=== PATIENT | male | born 1955 | race Caucasian/White ===

== ENCOUNTER → 2017-02-20 | Day surgery (SDC) | payer BC ==
[2017-02-02 11:51] VITALS: Ht 177.8 cm; Wt 111.4 kg
[~2017-02-20] VITALS: Ht 177.8 cm; Wt 111.4 kg
[~2017-02-20] MED LIST: HYZ/50125 PO; LEVO175T3 PO; MULT-1093 PO; PROPOFOL IV EMULSION 10 MG/ML 20 ML VIAL IV ONE; SODIUM CHLORIDE 0.9% 500ML 500 ML IV ONE
--- NOTE | 2017-02-20 09:49 | Endo History and Physical ---
History & Physical Date of Service: Feb 20, 2017. Chief Complaint: screening Referring Physician: Dr. Vazquez Benoit History of Present Illness 62 yo CM who presents for screening colonoscopy. Past Medical History Arthritis, Reflux, Hypertension, Thyroid Disease, Other Past Surgical History Hx Cardiac Surgery: No Hx Internal Defibrillator: No Hx Pacemaker: No Hx Abdominal Surgery: Yes (MIGUE, APPY, UMBILICAL HERNIA REPAIR ) Hx of Implantable Prosthesis: No Hx Post-Op Nausea and Vomiting: No Hx Cancer Surgery: No Hx Thoracic Surgery: No Hx Orthopedic: Yes (LEFT SHOULDER REPAIR, BILAT CTR, RIGHT KNEE ARTHROSCOPY) Hx Urinary Tract Surgery: Yes ([facility]) Family History None Social History Smoking Status: Never Smoker Hx Substance Use: No Hx Alcohol Use: No Allergies Coded Allergies: No Known Allergies (Verified , 02/02/17) Current Medications Reported Home Medications Medications Dose Route/Sig Max Daily Dose Days Date Category Centrum Silver 50+Men (Multiple Vitamins W/ Minerals) 1 Tab Tab 1 Tab PO QAM 02/02/17 Reported Hyzaar 12.5MG/50MG (HCTZ/Losartan Potassium) 1 Ea Tab 1 Tab PO QAM 02/02/17 Reported Levothyroxine Sodium 175 Mcg Tab 1 Tab PO QAM 90 02/02/17 Reported Vital Signs Weight (Kilograms): 111.36 Height (Feet): 5 Height (Inches): 10 Date Time Temp Pulse Resp B/P (MAP) Pulse Ox O2 Delivery O2 Flow Rate FiO2 02/20/17 09:02 36.9 72 20 119/68 (85) 95 Room Air Physical Exam General Appearance: WD/WN, no apparent distress Respiratory/Chest: Auscultation: breath sounds normal Cardiovascular: Heart Auscultation: RRR Abdomen: Bowel Sounds: normal Inspection & Palpation: soft, non-distended, no tenderness, guarding & rebound Assessment and Plan Assessment: 62 yo CM who presents for screening colonoscopy. Plan: Proceed with colonoscopy.
--- NOTE | 2017-02-20 10:17 | GI REPORT ---
Procedure Date: 02/20/2017 9:17 AM THIS REPORT HAS BEEN AMENDED Addendum Number: 1 Addendum Date: 02/20/2017 11:14:25 AM No specimens were collected on this exam, and therefore, no pathology is pending. Repeat colonoscopy in 10 years. Procedure: Colonoscopy Indications: Screening for colorectal malignant neoplasm Medicines: Monitored Anesthesia Care Complications: No immediate complications. Estimated Blood Loss: Estimated blood loss: none. Procedure: Pre-Anesthesia Assessment: - Prior to the procedure, a History and Physical was performed, and patient medications and allergies were reviewed. The patient's tolerance of previous anesthesia was also reviewed. The risks and benefits of the procedure and the sedation options and risks were discussed with the patient. All questions were answered, and informed consent was obtained. Prior Anticoagulants: The patient has taken no previous anticoagulant or antiplatelet agents. ASA Grade Assessment: II - A patient with mild systemic disease. After reviewing the risks and benefits, the patient was deemed in satisfactory condition to undergo the procedure. After I obtained informed consent, the scope was passed under direct vision. Throughout the procedure, the patient's blood pressure, pulse, and oxygen saturations were monitored continuously. The On-site loaner was introduced through the anus and advanced to the terminal ileum. The colonoscopy was performed without difficulty. The patient tolerated the procedure well. The quality of the bowel preparation was good. The terminal ileum, ileocecal valve, appendiceal orifice, and rectum were photographed. Findings: Non-bleeding internal hemorrhoids were found during retroflexion. The hemorrhoids were small. Impression: - Non-bleeding internal hemorrhoids. - No specimens collected. Recommendation: - Resume previous diet. - Continue present medications. - Repeat colonoscopy for surveillance based on pathology results. - Return to primary care physician as previously scheduled. Tawanda Selby, DO 02/20/2017 10:16:38 AM This report has been signed electronically. Note Initiated On: 02/20/2017 9:17 AM I attest to the content of the Intraoperative Record and orders documented therein, exceptions below Tawanda Tyler Selby, DO 02/20/2017 11:14:55 AM This report has been signed electronically.
--- NOTE | 2017-02-20 10:18 | Discharge Instructions ---
Endoscopy Patient Instructions Date / Procedure(s) Performed Feb 20, 2017. Colonoscopy Allergy Information Coded Allergies: No Known Allergies (Verified , 02/02/17) Discharge Date / Findings Feb 20, 2017. Internal hemorrhoids Medication Instructions OK to resume all medications today as prescribed Reported Home Medications Medications Dose Route/Sig Max Daily Dose Days Date Category Centrum Silver 50+Men (Multiple Vitamins W/ Minerals) 1 Tab Tab 1 Tab PO QAM 02/02/17 Reported Hyzaar 12.5MG/50MG (HCTZ/Losartan Potassium) 1 Ea Tab 1 Tab PO QAM 02/02/17 Reported Levothyroxine Sodium 175 Mcg Tab 1 Tab PO QAM 90 02/02/17 Reported Provider Instructions Activity Restrictions - No exercising or heavy lifting for 24 hours. - Do not drink alcohol the day of the procedure. - Do not drive a car or operate machinery until the day after the procedure. - Do not make any important decisions or sign important papers in 24 hours after the procedure. Following Day: - Return to full activity which may include returning to work/school. Diet Start your diet with liquids and light foods (jello, soup, juice, toast). Then eat your usual diet if not nauseated. Treatment For Common After Affects For mild abdominal pain, bloating, or excessive gas: - Rest - Eat lightly - Lie on right side Follow-Up Information Follow-up with Dr. Vazquez Benoit as scheduled Anesthesia Information What You Should Know You have had a procedure that required some medicine to reduce anxiety and discomfort. This treatment is called moderate sedation. After receiving the treatment, you may be sleepy, but you will be able to breathe on your own. The effects of the treatment may last for several hours. Follow these instructions along with Activity/Diet recommendations noted above: * Do NOT do anything where dizziness or clumsiness would be dangerous. * Rest quietly at home today, then you can be up and about tomorrow. * Have a responsible person stay with you the rest of today. * You may have had an I.V. today. If so, you may take the dressing off later today. Recommendations Call your doctor if: * Trouble breathing * Continuous vomiting for more than 24 hours * Temperature above 101 degrees * Severe abdominal pain or bloating * Pain not relieved by pain medicine ordered * There is increased drainage or redness from any incision * A large amount of rectal bleeding greater than 2-3 tablespoons. (If you had a polyp/s removed or have hemorrhoids, a small amount of blood - from the rectum is to be expected.) * You have any unanswered questions or concerns. IN THE EVENT OF A SERIOUS EMERGENCY, GO TO THE NEAREST EMERGENCY ROOM Your discharge instructions were prepared by provider Tawanda Selyb. Patient Instructions Signature Page Philip Vail Patient (or Guardian) Signature/Date: I have read and understand the instructions given to me by my caregivers. Caregiver/RN/Doctor Signature/Date: The above-named patient and/or guardian has received patient instructions on this date. + Original Patient Signature Page (only) stays with chart. Please make copy for patient.
--- NOTE | 2017-02-20 10:43 | Anesthesiology Progress Note ---
Anesthesia Post Op Note Date & Time Feb 20, 2017 at 10:43 Vital Signs Pain Intensity: 0 Vital Signs Past 12 Hours Date Time Temp Pulse Resp B/P (MAP) Pulse Ox O2 Delivery O2 Flow Rate FiO2 02/20/17 10:33 66 16 117/72 (87) 95 Room Air 02/20/17 10:18 36.6 64 16 109/62 (78) 95 Room Air 02/20/17 09:02 36.9 72 20 119/68 (85) 95 Room Air Notes Mental Status: alert / awake / arousable, participated in evaluation Pt Amnestic to Procedure: Yes Nausea / Vomiting: adequately controlled Pain: adequately controlled Airway Patency, RR, SpO2: stable & adequate BP & HR: stable & adequate Hydration State: stable & adequate Anesthetic Complications: no major complications apparent
[2017-02-20 10:48] VITALS: BP 130/77; PULSE 63; O2SAT 97
== END | disposition home or self-care (01) ==
LOC: C.GI 08:42
PROVIDERS: ATTEND Internal Medicine
DX: Z12.11 Encounter for screening for malignant neoplasm of colon (principal); K64.8 Other hemorrhoids; I10 Essential (primary) hypertension; K21.9 Gastro-esophageal reflux disease without esophagitis; E07.9 Disorder of thyroid, unspecified; M19.90 Unspecified osteoarthritis, unspecified site; Z79.899 Other long term (current) drug therapy

== ENCOUNTER → 2017-05-07 | Outpatient (CLI) | payer BC ==
[~2017-05-07] MED LIST changes: -PROPOFOL IV EMULSION 10 MG/ML 20 ML VIAL IV ONE; -SODIUM CHLORIDE 0.9% 500ML 500 ML IV ONE
--- NOTE | 2017-05-07 15:05 | DIAGNOSTIC IMAGING REPORT ---
CHEST 2 VIEWS ROUTINE CLINICAL HISTORY: R07.81 Chest pain, [id number] COMPARISON STUDY: 01/07/2015 FINDINGS: The cardiac and mediastinal contours remain stable. There is a descending aortic tortuosity/ectasia. There is no focal pulmonary consolidation. There is no failure. There are no pleural effusions. There is bridging anterior calcification of the anterior longitudinal ligament.[ IMPRESSION: No active disease in the chest. Electronically signed by: Teto Dowling M.D. 05/07/2017 3:03 PM Dictated Date/Time: 05/07/2017 3:03 PM
== END | disposition home or self-care (01) ==
LOC: C.RADBC 14:52
PROVIDERS: ATTEND Physician Assistant Medical
DX: R07.81 Pleurodynia (principal)

== ENCOUNTER → 2017-05-14 | Outpatient (CLI) | payer BC ==
[2017-05-14 16:45] LABS: BASO % 0.3 %; BASO ABS # 0.03 K/uL (0-0.2); COMPLETE YES; EOS % 2.5 %; HEMATOCRIT 42.1 % (42-52); IG% 0.4 %; LYMPH % 13.2 %; LYMPH ABS # 1.42 K/uL (1.2-3.4); MEAN CELL VOLUME 85.6 fL (80-100); MEAN CORPUSCULAR HEMOGLOBIN 30.3 pg (25-34); MEAN CORPUSCULAR HGB CONC 35.4 g/dl (32-36); MEAN PLATELET VOLUME 8.8 fL (7.4-10.4); MONO % 6.5 %; NEUT % 77.1 %; PLATELET COUNT 143 K/uL (130-400); RED BLOOD COUNT 4.92 M/uL (4.7-6.1); WHITE BLOOD COUNT 10.74 K/uL (4.8-10.8)
[2017-05-14 17:06] LABS: BLOOD UREA NITROGEN 22 mg/dl (7-18); BUN/CREATININE RATIO 28.9 (10-20); CALCIUM 8.9 mg/dl (8.5-10.1); CARBON DIOXIDE 27 mmol/L (21-32); CHLORIDE 103 mmol/L (98-107); CREATININE 0.77 mg/dl (0.60-1.40); GLUCOSE 102 mg/dl (70-99); POTASSIUM 3.7 mmol/L (3.5-5.1); SODIUM 136 mmol/L (136-145)
[2017-05-14 17:09] LABS: ALKALINE PHOSPHATASE 146 U/L (45-117); ALT/SGPT 34 U/L (12-78); AST/SGOT 24 U/L (15-37)
[2017-05-14 19:17] LABS: LYME DISEASE AB IGG NEG (NEG); LYME DISEASE AB IGM NEG (NEG)
[2017-05-15 07:21] LABS: ESTIMATED AVERAGE GLUCOSE 91 mg/dl; HA1C FLAG Normal (Normal)
== END | disposition home or self-care (01) ==
LOC: C.LAB 15:56
PROVIDERS: ATTEND Physician Assistant Medical
DX: I10 Essential (primary) hypertension (principal); E03.9 Hypothyroidism, unspecified; R73.9 Hyperglycemia, unspecified; R07.81 Pleurodynia; W57.XXXA Bitten or stung by nonvenomous insect and other nonvenomous arthropods, initial encounter

== ENCOUNTER 2023-12-04 11:40 | Observation (INO) ==
--- NOTE | 2023-11-15 11:26 | PAT Medication Instructions ---
Medication Instructions Date of Service November 15, 2023 Home Medications Medication Instructions Recorded hydrochlorothiazide 12.5 mg capsule 12.5 mg PO QAM #90 caps 09/10/23 losartan 50 mg tablet 50 mg PO QAM #90 tabs 09/18/23 pantoprazole 40 mg tablet,delayed 40 mg PO QAM #90 tabs 11/05/23 release (Protonix) multivitamin 1 tab PO QAM ibuprofen 200 mg tablet (Advil) 200 mg PO Q6H PRN omega-3 fatty acids 1,000 mg capsule 1,000 mg PO QAM levothyroxine 175 mcg tablet 175 mcg PO QAM hydrochlorothiazide 12.5 mg capsule 12.5 mg PO QAM losartan 50 mg tablet 50 mg PO QAM pantoprazole 40 mg tablet,delayed release (Protonix) 40 mg PO QAM levothyroxine 50 mcg tablet 50 mcg PO QAM ASK your surgeon for instructions ibuprofen 200 mg tablet (Advil) 200 mg PO Q6H PRN STOP taking 2 weeks before surgery (or as soon as possible if surgery is within 2 weeks) omega-3 fatty acids 1,000 mg capsule 1,000 mg PO QAM DO NOT take the morning of surgery multivitamin 1 tab PO QAM hydrochlorothiazide 12.5 mg capsule 12.5 mg PO QAM losartan 50 mg tablet 50 mg PO QAM Take morning of surgery With a small sip of water, OTHERWISE NOTHING TO EAT OR DRINK AFTER MIDNIGHT: levothyroxine 175 mcg tablet 175 mcg PO QAM pantoprazole 40 mg tablet,delayed release (Protonix) 40 mg PO QAM levothyroxine 50 mcg tablet 50 mcg PO QAM Other Notes If you have any questions please call us at [phone] or [phone] or [phone] or [phone]
--- NOTE | 2023-11-20 09:26 | Anesthesiology Consultation ---
Date of Service November 20, 2023 Assessment & Plan (1) Encounter for pre-operative examination: - Infectious disease screening: Per assessment on 11/15/23: No known recent infectious disease contacts or current infectious disease symptoms. - Outpatient joint assessment: Pt currently scheduled for inpatient pathway. If surgeon requests review for outpatient joint pathway, patient is not recommended candidate for outpatient joint program from anesthesia standpoint based on available information. - S/P EGD (09/20/23): [facility] at [facility] Chart Review Chart Review: Acceptable Risk for Surgery and Patient seen in Pre Admission Testing Teaching & Discussion Pre-Anesthesia Teaching/Discussion Notes: Instructed NPO after midnight before surgery,except medications with 15 cc of water. Medication instructions provided according to the PAT guidelines. History Surgery Operation Date: 12/04/23 08:50 Proposed Procedures p Right Total Knee Arthroplasty - Rambo Mccrary MD Height/Weight Height: 5 ft 10 in Weight: 123.9 kg Allergies Allergy/AdvReac Type Severity Reaction Status Date / Time No Known Allergies Allergy Unknown Verified 11/15/23 10:09 Medications Home Medications Medication Instructions Recorded Confirmed Last Taken multivitamin 1 tab PO QAM 05/17/18 11/15/23 09/11/23 ibuprofen 200 mg tablet (Advil) 200 mg PO Q6H PRN Pain 06/14/21 11/15/23 09/19/23 omega-3 fatty acids 1,000 mg 1,000 mg PO QAM 12/28/22 11/15/23 09/11/23 capsule levothyroxine 175 mcg tablet 175 mcg PO QAM 09/06/23 11/15/23 09/20/23 04:30 hydrochlorothiazide 12.5 mg capsule 12.5 mg PO QAM #90 caps 09/10/23 11/15/23 09/19/23 losartan 50 mg tablet 50 mg PO QAM #90 tabs 09/18/23 11/15/23 09/20/23 04:30 pantoprazole 40 mg tablet,delayed 40 mg PO QAM #90 tabs 11/05/23 11/15/23 Unknown release (Protonix) levothyroxine 50 mcg tablet 50 mcg PO QAM 11/15/23 11/15/23 Unknown Wheeled Walker #1 ea 11/20/23 Unknown Past Medical History Medical History BPH (benign prostatic hyperplasia) no current issues Cervical spinal stenosis GERD (gastroesophageal reflux disease) History of kidney stones Hyperlipidemia Hypertension Hypothyroidism Lumbar spinal stenosis Obesity Obstructive sleep apnea Unable to Tolerate CPAP Osteoarthritis Renal cyst bilateral - monitoring Exercise / Class Metabolic Activity II 4-5 Yardwork/Stairs/Walk up hill (one FS: No CP, no SOB) Past Family History Family History Mother Cancer of kidney, Onset Age: 92 Father Diabetes . age 57 Coronary heart disease age 57 Myocardial infarction Uncle Lung cancer Other No family history of adverse response to anesthesia Denies family history of Ovarian cancer Prostate cancer Breast cancer Colorectal cancer Stroke Past Surgical History Surgical History H/O colonoscopy H/O removal of cyst forehead (local anesthesia) History of appendectomy History of cholecystectomy History of umbilical hernia repair Hx of cystoscopy Hx of esophagogastroduodenoscopy [facility] (09/20/23) Hx of lithotripsy 2014 S/P arthroscopy of shoulder left rotator cuff repair S/p bilateral carpal tunnel release S/P epidural steroid injection S/P right knee arthroscopy S/P T&A (status post tonsillectomy and adenoidectomy) Past Anesthesia History No Hx of Anesthesia Complications and No Family Hx of Anesthesia Complications History of PONV No Hx of PONV and No Hx of Motion Sickness Social History Smoking Status: Never smoker Do You Dip or Chew Tobacco: No Hx Alcohol Use: No Alcohol type: beer Hx Substance Use: No substance use type: does not use Review of Systems Patient denies chest pain, shortness of breath, dyspnea on exertion, fever, chills, cough, wheezing, palpitations. Physical Exam Vital Signs BP 116/70 P 59 TEMP 98.6 SP02 95%RA RESP 18 Physical Decreased cervical extension range of motion. Full TMJ range of motion. TMD 3.5 finger breaths Mallampati Score 2 Dentition: missing molar, + crown (molar) Lungs: clear throughout to auscultation Cardiac: regular rate and rhythm, no murmurs noted Spine: normal Carotid arteries: negative bruit Extremities: no LE edema Lab Results Anesthesia Preop Results Results Anesthesia Widget: WBC 12.08 K/ul (4.8-10.8) H 11/20/23 Hgb 13.9 g/dl (14.0-18.0) L 11/20/23 Hct 42.0 % (42.0-52.0) 11/20/23 Plt 204 K/uL (130-400) 11/20/23 Na 137 mmol/L (136-145) 11/20/23 K 3.5 mmol/L (3.5-5.1) 11/20/23 Cl 104 mmol/L (98-107) 11/20/23 CO2 26 mmol/L (21-32) 11/20/23 BUN 18 mg/dl (6-23) 11/20/23 Creat 0.91 mg/dl (0.6-1.4) 11/20/23 Glucose Level 107 mg/dl (70-99(Fasting)) H 11/20/23 PT 10.1 Seconds (9.0-12.0) 11/20/23 PTT 29 Seconds (21-31) 11/20/23 INR 0.9 (0.9-1.1) 11/20/23 Blood Type O Positive 11/20/23 Antibody Screen NEGATIVE 11/20/23 Testing Laboratory Results Surgeon's office made aware of elevated WBC* Electrocardiogram Date: 07/04/23 SR with first degree AVB at 69bpm. Chest X-Ray Date: 07/04/23 FINDINGS: Lung volumes are normal. Lungs are clear. There is no pneumothorax or pleural effusion. Cardiac size is at the upper limits of normal. Mediastinal contours are normal. There is no evidence for pulmonary edema. IMPRESSION: No acute cardiopulmonary findings. Stress Test Date: 07/30/23 Type: DSE DSE/stress ECG for myocardial ischemia 90% MPHR. Baseline echo with normal LV function. LVEF 50-55%. Mild concentric LVH. No significant valvular disease.
--- NOTE | 2023-11-23 07:50 | History & Physical Report ---
Date of Service November 23, 2023 Assessment & Plan (1) Degenerative arthritis of knee, bilateral: 68-year-old gentleman with advanced bilateral knee arthritis. The right seems knee is bothering him more than the left. He is ready to have surgical treatment. He was hoping to do both knees at the same time. Based on his age and medical situation I do not think that this is in the best of his interest and we should stick to doing 1 knee at a time. Plan: Corrie taken the operating do right total knee replacement for the risks Mente this procedure explained and he understands and desires to proceed. Informed consent was obtained. Will plan on using aspirin, teds, SCDs for DVT prophylaxis. He does have a fishing trip in early and will do after that. He is planning to be discharged to home using [facility] and his 's assistance. History of Present Illness Chief Complaint: . Bilateral knee pain right side greater than left. Primary Care Provider: Jet Muhammad DO . Patient is 68-year-old gentleman referred by Dr. Gore as well as a Hussein for evaluation and definitive treatment of his knees. He is got a long history of bilateral knee pain discomfort that is gradually gotten worse over time. The right knee bothers him more than the left. He does have a history of a right knee arthroscopy done in the past. Pains become more disabling. He has been putting this off for quite some time. He describes global pain. The more he is up and on his legs and where it hurts. They get stiff. Allergies Allergy/AdvReac Type Severity Reaction Status Date / Time No Known Allergies Allergy Unknown Verified 11/15/23 10:09 Home Medications Medication Instructions Recorded Confirmed Type multivitamin 1 tab PO QAM 05/17/18 11/15/23 History ibuprofen 200 mg tablet (Advil) 200 mg PO Q6H PRN Pain 06/14/21 11/15/23 History omega-3 fatty acids 1,000 mg 1,000 mg PO QAM 12/28/22 11/15/23 History capsule levothyroxine 175 mcg tablet 175 mcg PO QAM 09/06/23 11/15/23 History hydrochlorothiazide 12.5 mg capsule 12.5 mg PO QAM #90 caps 09/10/23 11/15/23 Rx losartan 50 mg tablet 50 mg PO QAM #90 tabs 09/18/23 11/15/23 Rx pantoprazole 40 mg tablet,delayed 40 mg PO QAM #90 tabs 11/05/23 11/15/23 Rx release (Protonix) levothyroxine 50 mcg tablet 50 mcg PO QAM 11/15/23 11/15/23 History Wheeled Walker #1 ea 11/20/23 Rx Past Med/Surg History Problem List (Updated 11/23/23 @ 07:48 by Rambo Mccrary MD) Degenerative arthritis of knee, bilateral Encounter for pre-operative examination Impingement of left shoulder Cervical radiculopathy Asbestos exposure Lumbar radiculopathy Elevated PSA Medical History Obesity Hyperlipidemia Hypertension Hypothyroidism Osteoarthritis GERD (gastroesophageal reflux disease) BPH (benign prostatic hyperplasia) no current issues Cervical spinal stenosis Lumbar spinal stenosis History of kidney stones Renal cyst bilateral - monitoring Obstructive sleep apnea Unable to Tolerate CPAP Surgical History S/P epidural steroid injection H/O removal of cyst forehead (local anesthesia) Hx of esophagogastroduodenoscopy [facility] (09/20/23) Hx of cystoscopy H/O colonoscopy S/P T&A (status post tonsillectomy and adenoidectomy) Hx of lithotripsy 2014 S/P right knee arthroscopy S/p bilateral carpal tunnel release S/P arthroscopy of shoulder left rotator cuff repair History of umbilical hernia repair History of appendectomy History of cholecystectomy Family History Mother Cancer of kidney, Onset Age: 92 Father Diabetes . 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 Physical Exam Physical examination reveals a pleasant fairly large middle-age male. Looks in reasonably good health. Examination of both knees reveals patient walks with a varus alignment to his knees. Walks a little bit waddling gait. Examination of the right knee reveals varus alignment. He is tender with medial joint lines. Small knee effusion. Range of motion 5-1 20. No instability. No particular pain with hip motion. Examination left knee reveals similar varus alignment. He is tender with medial joint line. Range of motion 5-1 20. No instability. Constitutional WD/WN, vitals as above Neck trachea midline, no thyromegaly Respiratory normal respiratory effort, lungs clear to auscultation Cardiovascular RRR, no murmur, no edema Gastrointestinal (Abdomen) normal bowel sounds, soft, nontender, no hepatosplenomegaly Results & Data Results & Data Laboratory Results . Diagnostic Findings . X-rays of both knees reveal advanced medial compartment arthritis. He is got complete loss of the medial joint space. Is kilobit chondrocalcinosis. Both knees are pretty equal in severity. PG Care Time/CCT Total # of Minutes Spent Total Time Spent with Patient: Total time spent is greater than 50% in coordination of care (as documented) at patient's floor/unit and/or counseling patient: Coding Level of Care Code None Diagnoses Degenerative arthritis of knee, bilateral M17.0
[~2023-12-04 11:40] MED LIST changes: +BUPIVACAINE 0.5 % 5 MG/1 ML PF 10ML VIAL ONE; +EPINEPHrine INJ 1 MG/ML AMP ONE; -HYZ/50125 PO; -LEVO175T3 PO; -MULT-1093 PO; +ROPIVACAINE 0.5% 5 MG/ML 30 ML VIAL ONE
[2023-12-04] MEDS: CeleBREX 200 MG CAP PO SCH (12:26)
[2023-12-04] MEDS: ACETAMINOPHEN 500 MG TAB PO SCH ×2 (12:26→20:01)
[2023-12-04] MEDS: dexAMETHasone**PF** 10 MG/ML VIAL IV SCH (12:27)
[2023-12-04] MEDS: LR 60ML/HR IV SCH (12:27)
[2023-12-04] MEDS: METOCLOPRAMIDE HCL 10 MG TABLET PO SCH (12:27)
[2023-12-04] MEDS: FAMOTIDINE 20 MG TAB PO SCH (12:27)
[2023-12-04] MEDS: Scopolamine 1 MG TDSY TD SCH (12:28)
[2023-12-04] MEDS: LR 500ML BOLUS, THEN 15ML/HR IV SCH (12:28)
--- NOTE | 2023-12-04 13:02 | History & Physical Bridge Note ---
Date of Service December 04, 2023 History & Physical Bridge Note I have examined the patient, reviewed the History & Physical and in the interval since the performance of the History & Physical I have noted the following changes of clinical significance: no changes noted
[2023-12-04] MEDS ORDERED: ePHEDrine sulfate 50 MG/ML AMP IV PRN (13:51)
[2023-12-04] MEDS ORDERED: ATROPINE SULFATE 0.1 MG/ML 10ML SYR IV PRN (13:51)
[2023-12-04] MEDS ORDERED: PROPOFOL IV EMULSION 10 MG/ML 20 ML VIAL IV ONE ×5 (14:42→15:44)
[2023-12-04] MEDS ORDERED: MIDAZOLAM HCL 1 MG/ML 2ML VIAL ONE (14:42)
[2023-12-04] MEDS ORDERED: ONDANSETRON INJ 2 MG/ML 2 ML VIAL ONE (14:42)
[2023-12-04] MEDS ORDERED: LIDOCAINE 2% 2 ML VIAL/AMP(20MG/ML) INFIL ONE (14:42)
[2023-12-04] MEDS ORDERED: DEXAMETHASONE SOD INJ 4 MG/ML VIAL ONE (14:42)
[2023-12-04] MEDS ORDERED: fentaNYL citrate PF 100 MCG/2 ML VIAL ONE (14:43)
[2023-12-04] MEDS: ceFAZolin 3000MG 3,000 MG/72.5 ML BAG IV SCH (15:02)
[2023-12-04] MEDS: ROPIV 0.5% 246mg, Ketorolac 30mg, EPINEPHrine 0.5mg in NSS INFIL SCH (15:45)
[2023-12-04] MEDS: ORTHO JOINT ANESTHETIC ONE (15:45)
[2023-12-04] MEDS: TRANEXAMIC ACID 1,000 MG **IV Pre-op IV SCH (16:16)
--- NOTE | 2023-12-04 16:42 | Operative Report ---
PG Post Operative Report Pre & Post Diagnosis Operation Date: 12/04/23 13:50 Pre-Op Diagnosis: Right Knee Degenerative Joint Disease Post-Op Diagnosis: Right Knee Degenerative Joint Disease I identified the patient and participated in the time-out.: Yes Procedure Operation Date: 12/04/23 13:50 Actual Procedures p Right Total Knee Arthroplasty, Cemented(Right) - Rambo Mccrary MD Surgeon Rambo Mccrary MD Trolley Coach Driver Hussein Tomlin PA-C Estimated Blood Loss 100 Findings Consistent with Post-Op Diagnosis Operative findings show advanced right knee DJD. He had grade 4 [id number] disease primarily involving the medial and patellofemoral compartments. Moderate-sized joint effusion. Specimens Right knee sent for pathology. Anesthesia Type Spinal MAC Complications none Disposition Accompanied Patient To Recovery: No Indications Patient is a 68-year-old gentleman has a several year history of increasing right knee pain discomfort that is gradually gotten worse over time. Is been through extensive conservative treatment which became less successful. X-rays show advanced right knee DJD. He elected proceed with surgical treatment. Description of Procedure Operative implants consisted of: 1. Biomet Vanguard size 72.5 right posterior stabilized femoral component. 2. Biomet size 79 tibial tray. 3. 10 mm posterior stabilized polyethylene insert. 4. 34 x 8 and half all poly patella. The patient was taken to the operating, identified, placed on the operating table in the supine position. All contact areas were appropriately padded. IV antibiotics tried by anesthesia team. I a spinal anesthetic and adductor canal block had provided in the holding area. A right thigh turn was then placed. The right lower extremity was then prepped and draped in usual sterile fashion. The right leg was elevated and exsanguinated with use of an Esmarch and the tourniquet was placed at 300 mmHg. We did adjust this over time up to 350 to limit blood loss. An anterior approach to the right knee was then performed to longitudinal incision centered over the patella. Sharp dissection was carried through subcutaneous tissue down the extensor mechanism. A medial parapatellar arthrotomy incision was made. Some subperiosteal dissection was carried out medially. The fat pad was resected from Neath patella tendon. The lateral patellofemoral ligament was released. Patella subluxated laterally and the knee was flexed. The osteophyte taken off distal femur. The ACL PCL were then released from the distal femur and the tibia subluxated anteriorly. The external treatment line jig was then placed on the anterior face of the tibia and adjusted 14 mm medially. Proximal tibial cut was made remove about 2 to 3 mm of bone from the medial side. The tibia was then sized to a size 79. Attention drawn the femur. The distal femur Zaro the sharp drill. Intramedullary canal was suction. A right 6 degree valgus cutting guide was placed. Distal femoral cutting block was pinned in place. Distal femoral cut was made to take an additional 3 mm of bone off distal femur. The femur was then sized to a size 72.5. The AP cutting block was pinned parallel to the epicondylar axis which was 4 degrees of external rotation. The anterior cut, anterior chamfer, posterior cut, posterior chamfer cuts were made. The box cutting guide was placed with just slight lateral and the box cut was made. The knee was flexed. The remnants of the medial and lateral menisci were excised. The osteophytes were taken off the posterior aspect the femur. A trial femoral component was placed. The tibial tray was pinned Sheila external rotation and the drill and stem punch were used to create defect in proximal tibia for the tibial tray. The knee was then trialed and the 10 mm insert fit most appropriately. Attention drawn the patella. The patella was cleaned of all soft tissue. Patella thickness measured 23 mm in thickness was cut down to 14. Was sized to a size 34 patella. The locals were drilled for 34 patella. The lateral osteophytes removed. Patella button was placed. Knee was taken through range of motion patella tracked nicely with no thumbs test. Attention drawn to placing permanent components. All trial components were removed. Bone plug was placed in the distal femur limit blood loss. Double batch Palacos G cement was mixed. Biomet Vanguard size 72.5 right posterior stabilized femoral component, size 79 tibial tray, a 10 mm post stabilized polyethylene insert, and a 34 x 8 and half all poly patella then cemented in place. The knee was brought out into full extension till cement hardened. Final cement check was then performed. The pericapsular tissues were injected with total of 100 cc of Ortho mix. The patient did receive 1 g of tranexamic acid but the tourniquet was then let down for final tourniquet time of 49 minutes. Hemostasis assured use electrocautery. Extensor Meclomen closed with combination 1 PDS suture #1 Vicryl suture in a [id number] fashion. Extensor Meclomen checked found to be intact in the subcutaneous tissues then closed with 2 Dexon suture in a buried interrupted fashion skin was closed skin mane. Leg was then cleaned and dried and sterile dressed with Xeroform, 4.8 fours, sterile cast padding, Mario bandage were applied. Patient then transferred to the recovery room in stable condition. Patient tolerated procedure well and there were no complications. Hussein Tomlin, my physician assistant art director, was present for the entire procedure. His assistance was essential and required for appropriate patient positioning, prepping and draping, surgical exposure, performing the technical details of the operation, placement the implants, closure of the wound, and placement of the sterile bandage. I attest to the content of the Intraoperative Record and any orders documented therein. Any exceptions are noted below.
--- NOTE | 2023-12-04 17:09 | XRay Report ---
TWO VIEWS RIGHT KNEE CLINICAL HISTORY: Postoperative examination. FINDINGS: AP and crosstable lateral portable views of the right knee are obtained. A right knee arthr oplasty is in near anatomic alignment. There has been undersurface remodeling of the patella. No acut e fracture is seen. There are expected postoperative changes around the knee including skin clips, so ft tissue edema, and subcutaneous gas. IMPRESSION: Expected postoperative changes status post right knee arthroplasty. No acute fracture is seen. ACT 112: Negative or not required by law. Electronically signed by: Jose J Cortez M.D. 12/04/2023 5:08 PM
--- NOTE | 2023-12-04 17:31 | Anesthesiology Progress Note ---
Date of Service December 04, 2023 Anesthesia Post Procedure Vital Signs Vital Signs: Temp Pulse Pulse Resp BP Pulse Ox O2 Del Method 12/04/23 17:20 37 C 71 18 116/66 93 Nasal Cannula 12/04/23 17:10 70 19 110/65 93 Nasal Cannula 12/04/23 17:00 72 17 114/65 93 Nasal Cannula 12/04/23 16:50 82 16 99/60 L 92 Nasal Cannula 12/04/23 16:41 36 C L 88 17 112/61 94 Oxymask 12/04/23 12:09 36.8 C 78 20 155/65 H 96 Room Air O2 Flow Rate 12/04/23 17:20 2 12/04/23 17:10 2 12/04/23 17:00 2 12/04/23 16:50 2 12/04/23 16:41 6 12/04/23 12:09 Pain Intensity Lower Neck: Pain Intensity: 7 Transfer of Care Handoff Completed per policy Notes Mental Status: alert / awake / arousable Patient Amnestic to Procedure: Yes Nausea / Vomiting: adequately controlled Pain: adequately controlled Airway Patency, RR, SpO2: stable & adequate BP & HR: stable & adequate Hydration State: stable & adequate Neuraxial Anesthesia: was administered and sensory block is resolving Anesthetic Complications: no major complications apparent
[2023-12-04] MEDS ORDERED: METOCLOPRAMIDE HCL INJ 5 MG/ML 2 ML VIAL IV PRN (18:13)
[2023-12-04] MEDS ORDERED: bisacodyL 10 MG SUPP PR PRN (18:13)
[2023-12-04] MEDS ORDERED: HYDROmorphone INJ 0.5 MG/0.5 ML SYR IV PRN (18:13)
[2023-12-04] MEDS ORDERED: oxyCODONE HCL IR 5 MG TAB (IMMEDIATE RELEASE) PO PRN (18:13)
[2023-12-04] MEDS ORDERED: ALUMINUM/MAGNESIUM SUSP 30 ML UDC PO PRN (18:13)
[2023-12-04] MEDS ORDERED: ONDANSETRON INJ 2 MG/ML 2 ML VIAL IV PRN (18:13)
[2023-12-04] MEDS ORDERED: MAGNESIUM HYDROXIDE SUSP 30 ML UDC PO PRN (18:13)
[2023-12-04] MEDS ORDERED: NALOXONE HCL 0.4 MG/1 ML VIAL/CARP IV PRN (18:13)
[2023-12-04] MEDS ORDERED: diphenhydrAMINE Capsule 25 MG CAP PO PRN (18:13)
[2023-12-04] MEDS: SODIUM CHLORIDE 0.9% 1,000 ML IV SCH (19:51)
[2023-12-04] MEDS: Scopolamine CHECK PATCH PLACEMENT SCH (19:55)
[2023-12-04] MEDS: ASCORBIC ACID 500 MG TAB PO SCH (19:57)
[2023-12-04] MEDS: KETOROLAC TROMETHAMINE 15 MG/ML VIAL IV SCH (19:58)
[2023-12-04] MEDS: ASPIRIN 81 MG ECTAB PO SCH (20:00)
[2023-12-04] MEDS: SENNA 8.6 MG TAB PO SCH ×2 (20:02)
[2023-12-04] MEDS: DOCUSATE SODIUM 100 MG CAP PO SCH (20:02)
[2023-12-04] MEDS: ceFAZolin 2000MG 2,000 MG/15 ML SYR IV SCH (22:06)
[2023-12-04] MEDS: TRANEXAMIC ACID / 0.7% NACL 1,000 MG/100 ML BAG IV SCH (22:07)
[2023-12-05] MEDS: LEVOTHYROXINE SODIUM 50 MCG TABLET PO SCH (05:45)
[2023-12-05] MEDS: LEVOTHYROXINE SODIUM 175 MCG TABLET PO SCH (05:45)
[2023-12-05 07:09] LABS: Hematocrit (blood only) 36.6 % (42.0-52.0); Hemoglobin 12.2 g/dl (14.0-18.0); Mean Corpuscular Hemoglobin 28.4 pg (25.0-34.0); Mean Corpuscular Hgb Conc 33.3 g/dL (32.0-36.0); Mean Corpuscular Volume 85.1 fL (80.0-100.0); Mean Platelet Volume 8.6 fL (9.4-12.4); Platelet Count 166 K/uL (130-400); RDW Coefficient of Variation 13.2 % (11.5-14.5); RDW Standard Deviation 40.5 fL (36.4-46.3); White Blood Count 15.05 K/ul (4.8-10.8)
[2023-12-05 07:17] LABS: BUN Creatinine Ratio 21.5 (10-20); Calcium 8.4 mg/dl (8.6-10.3); Creatinine Clr Calc Pharmacy 117.5 ml/min; Est GFR (African American) 107.7 ml/min; Est GFR (Non-African American) 92.9 ml/min
--- NOTE | 2023-12-05 07:17 | Orthopedic Progress Note ---
Date of Service December 05, 2023 Assessment & Plan (1) Status post total right knee replacement: Seen and examined by Dr. Mccrary. Doing well PT/OT, wbat D/C planning, home with home health today if he does well with PT DVT prophylaxis: teds, scd's, aspirin. Has some numbness in left arm and sees Dr. Geiger for this, Will follow up as outpatient. Subjective .68 year old patient POD #1 from right tka. Doing well. Pain controlled. No chest pain or shortness of breath. Review of Systems All systems reviewed & are unremarkable except as noted in HPI & below. Physical Exam .alert and oriented. NAD VSS. Labs pending. Dressing clean, dry, intact to right leg. Able to dorsiflex and plantarflex. NVI Results & Data Results & Data Laboratory Results . Diagnostic Findings . PG Care Time/CCT Total # of Minutes Spent Total Time Spent with Patient: Total time spent is greater than 50% in coordination of care (as documented) at patient's floor/unit and/or counseling patient: Coding Level of Care Code 51382 Post Operative Follow-Up Diagnoses Status post total right knee replacement Z96.651
[2023-12-05] MEDS: OMEGA-3 (PURIFIED FISH OIL) 1 GM CAP PO SCH (08:27)
[2023-12-05] MEDS: TAMSULOSIN HCL 0.4 MG CAP PO SCH (08:27)
[2023-12-05] MEDS: dexAMETHasone 10 MG in SYRINGE 0 ML IV SCH (08:27)
[2023-12-05] MEDS: hydroCHLOROthiazide 25 MG TAB PO SCH (08:27)
[2023-12-05] MEDS: LOSARTAN POTASSIUM 50 MG TAB PO SCH (08:28)
[2023-12-05] MEDS: MULTIVITAMIN TAB PO SCH (08:28)
[2023-12-05] MEDS: PANTOprazole 40 MG TAB PO SCH (08:28)
[2023-12-05] MEDS ORDERED: NON-FORMULARY MEDICATION (Multivitamin tablet) PO SCH (09:00)
== END 2023-12-05 10:45 | disposition home health service (06) ==
LOC: ASU 11:40 → 3N 11:40

== ENCOUNTER 2024-02-26 05:36 | Observation (INO) ==
--- NOTE | 2024-01-29 14:09 | PAT Medication Instructions ---
Medication Instructions Date of Service January 29, 2024 Home Medications Medication Instructions Recorded losartan 50 mg tablet 50 mg PO QAM #90 tabs 09/18/23 pantoprazole 40 mg tablet,delayed 40 mg PO QAM #90 tabs 11/05/23 release (Protonix) levothyroxine 50 mcg tablet 50 mcg PO QAM #90 tabs 12/18/23 levothyroxine 175 mcg tablet 175 mcg PO QAM #90 tabs 12/31/23 Medication List: multivitamin 1 tab PO QAM omega-3 fatty acids 1,000 mg capsule 1,000 mg PO QAM losartan 50 mg tablet 50 mg PO QAM pantoprazole 40 mg tablet,delayed release (Protonix) 40 mg PO QAM levothyroxine 50 mcg tablet 50 mcg PO QAM levothyroxine 175 mcg tablet 175 mcg PO QAM acetaminophen 500 mg tablet (Tylenol Extra Strength) 1,000 mg PO TID PRN pain MEDICATION INSTRUCTIONS: STOP taking 2 weeks before surgery omega-3 fatty acids 1,000 mg capsule 1,000 mg PO QAM DO NOT take the morning of surgery multivitamin 1 tab PO QAM losartan 50 mg tablet 50 mg PO QAM Take morning of surgery With a small sip of water, OTHERWISE NOTHING TO EAT OR DRINK AFTER MIDNIGHT: pantoprazole 40 mg tablet,delayed release (Protonix) 40 mg PO QAM levothyroxine 50 mcg tablet 50 mcg PO QAM levothyroxine 175 mcg tablet 175 mcg PO QAM acetaminophen 500 mg tablet (Tylenol Extra Strength) 1,000 mg PO TID PRN pain Take evening before surgery acetaminophen 500 mg tablet (Tylenol Extra Strength) 1,000 mg PO TID PRN pain Other Notes If you have any questions please call us at [phone] or [phone] or [phone] or [phone]
--- NOTE | 2024-02-06 12:52 | Anesthesiology Consultation ---
Date of Service February 06, 2024 Assessment & Plan (1) Encounter for pre-operative examination: - Infectious disease screening: Per assessment on 01/29/24: No known recent infectious disease contacts or current infectious disease symptoms. - PCP visit (12/31/23): "Review of Wellness Screenings.. Education provided for typical screening for the Patients Age. Encouraged Good Diet and Exercise.. Review of Vaccinations.. Ordered Routine Screening Labs.. Provided opportunity for patient questions and discussion. colonoscopy 2017 Repeat 10 yrs.. Hypertension, potentially symptomatic with low normal blood pressure readings continue losartan 50 mg daily and discontinue. Plan on rechecking blood pressure in 2 weeks and the nurse clinic patient will call if there is any changes or blood pressure management.. Continue home blood pressure.. Hyper lipidemia update lab work reevaluate patient's ASCVD with overall weight loss.. Hypothyroidism, clinically stable.. Continue medications and update TSH.. Obesity, congratulated on continue dietary control as tolerated reevaluate patient risks." Nurse BP recheck done 01/18/24 119/80. Chart Review Chart Review: Acceptable Risk for Surgery and Patient seen in Pre Admission Testing Teaching & Discussion Pre-Anesthesia Teaching/Discussion Notes: Instructed NPO after midnight before surgery,except medications with 15 cc of water. Medication instructions provided according to the PAT guidelines. History Surgery Operation Date: 02/26/24 07:15 Proposed Procedures p C4-C5, C5-C6 Cervical Artifical Disc Arthroplasty - Omid Geiger MD Height/Weight Height: 5 ft 10 in Weight: 117.9 kg Allergies Allergy/AdvReac Type Severity Reaction Status Date / Time No Known Allergies Allergy Unknown Verified 01/29/24 10:18 Medications Home Medications Medication Instructions Recorded Confirmed Last Taken multivitamin 1 tab PO QAM 05/17/18 01/29/24 11/20/23 omega-3 fatty acids 1,000 mg 1,000 mg PO QAM 12/28/22 01/29/24 11/20/23 capsule losartan 50 mg tablet 50 mg PO QAM #90 tabs 09/18/23 01/29/24 12/03/23 05:00 pantoprazole 40 mg tablet,delayed 40 mg PO QAM #90 tabs 11/05/23 01/29/24 12/04/23 04:30 release (Protonix) levothyroxine 50 mcg tablet 50 mcg PO QAM #90 tabs 12/18/23 01/29/24 Unknown levothyroxine 175 mcg tablet 175 mcg PO QAM #90 tabs 12/31/23 01/29/24 Unknown acetaminophen 500 mg tablet 1,000 mg PO TID PRN pain 01/29/24 01/29/24 Unknown (Tylenol Extra Strength) Past Medical History Medical History (Updated 02/06/24 @ 12:48 by Merly Cervantes) BPH (benign prostatic hyperplasia) no current issues Cervical disc disorder at C4-C5 level with radiculopathy Cervical disc disorder at C5-C6 level with radiculopathy Cervical spinal stenosis Elevated PSA GERD (gastroesophageal reflux disease) History of kidney stones HTN (hypertension) controlled Hyperlipidemia Per records Hypothyroidism Lumbar spinal stenosis Obesity Obstructive sleep apnea Unable to Tolerate CPAP Osteoarthritis Renal cyst bilateral - monitoring Exercise / Class Metabolic Activity II 4-5 Yardwork/Stairs/Walk up hill (one FS: No CP, no SOB) Past Family History Family History Mother Cancer of kidney, Onset Age: 92 Father Diabetes Coronary heart disease Myocardial infarction Uncle Lung cancer Other No family history of adverse response to anesthesia Denies family history of Ovarian cancer Prostate cancer Breast cancer Colorectal cancer Stroke Past Surgical History Surgical History (Updated 02/04/24 @ 10:37 by Merly Cervantes) H/O colonoscopy 01/2017 Repeat 10 yrs H/O removal of cyst forehead (local anesthesia) History of appendectomy History of cholecystectomy History of total right knee replacement Right TKA (12/04/23): SAB at L3-4 + regional at [facility] History of umbilical hernia repair Hx of cystoscopy Hx of esophagogastroduodenoscopy [facility] (09/20/23) Hx of lithotripsy 2014 S/P arthroscopy of shoulder left rotator cuff repair S/p bilateral carpal tunnel release S/P epidural steroid injection S/P right knee arthroscopy S/P T&A (status post tonsillectomy and adenoidectomy) Past Anesthesia History No Hx of Anesthesia Complications and No Family Hx of Anesthesia Complications History of PONV No Hx of PONV and No Hx of Motion Sickness Social History Smoking Status: Never smoker Do You Dip or Chew Tobacco: No Hx Alcohol Use: No Alcohol type: beer Hx Substance Use: No substance use type: does not use Review of Systems Patient denies chest pain, shortness of breath, dyspnea on exertion, fever, chills, cough, wheezing, palpitations. Physical Exam Vital Signs BP 110/71 P 73 TEMP 98.3 SP02 95%RA RESP 16 Physical Full cervical extension range of motion. Full TMJ range of motion. TMD 3 finger breaths Mallampati Score III Dentition: intact, + crown (left upper side) Lungs: clear throughout to auscultation Cardiac: regular rate and rhythm, no murmurs noted Spine: normal Carotid arteries: negative bruit Extremities: no LE edema Lab Results Anesthesia Preop Results Results Anesthesia Widget: WBC 8.63 K/ul (4.8-10.8) 02/06/24 Hgb 13.8 g/dl (14.0-18.0) L 02/06/24 Hct 42.8 % (42.0-52.0) 02/06/24 Plt 207 K/uL (130-400) 02/06/24 Na 139 mmol/L (136-145) 02/06/24 K 4.1 mmol/L (3.5-5.1) 02/06/24 Cl 104 mmol/L (98-107) 02/06/24 CO2 28 mmol/L (21-32) 02/06/24 BUN 12 mg/dl (6-23) 02/06/24 Creat 0.74 mg/dl (0.6-1.4) 02/06/24 Glucose Level 104 mg/dl (70-99(Fasting)) H 02/06/24 PT 10.5 Seconds (9.0-12.0) 02/06/24 PTT 30 Seconds (21-31) 02/06/24 INR 1.0 (0.9-1.1) 02/06/24 TSH 0.870 uIu/ml (0.300-4.500) 02/06/24 Blood Type O Positive 02/06/24 Antibody Screen NEGATIVE 02/06/24 Testing Electrocardiogram Date: 07/04/23 SR with first degree AVB at 69bpm. Chest X-Ray Date: 07/04/23 FINDINGS: Lung volumes are normal. Lungs are clear. There is no pneumothorax or pleural effusion. Cardiac size is at the upper limits of normal. Mediastinal contours are normal. There is no evidence for pulmonary edema. IMPRESSION: No acute cardiopulmonary findings. Stress Test Date: 07/30/23 Type: DSE DSE/stress ECG for myocardial ischemia 90% MPHR. Baseline echo with normal LV function. LVEF 50-55%. Mild concentric LVH. No significant valvular disease.
[2024-02-26] MEDS: LR 60ML/HR IV SCH (06:24)
[2024-02-26] MEDS: LR 15ML/HR IV SCH (06:24)
[2024-02-26] MEDS ORDERED: MIDAZOLAM HCL 1 MG/ML 2ML VIAL ONE (06:58)
[2024-02-26] MEDS ORDERED: PROPOFOL IV EMULSION 10 MG/ML 20 ML VIAL IV ONE (06:58)
[2024-02-26] MEDS ORDERED: fentaNYL citrate PF 100 MCG/2 ML VIAL ONE (06:58)
[2024-02-26] MEDS ORDERED: DEXAMETHASONE SOD INJ 4 MG/ML VIAL ONE (06:58)
[2024-02-26] MEDS ORDERED: ONDANSETRON INJ 2 MG/ML 2 ML VIAL ONE (06:58)
[2024-02-26] MEDS ORDERED: LIDOCAINE 2% 2 ML VIAL/AMP(20MG/ML) INFIL ONE (06:58)
[2024-02-26] MEDS ORDERED: SUGAMMADEX SODIUM 200 MG/2 ML VIAL IV ONE (06:59)
[2024-02-26] MEDS ORDERED: ONDANSETRON INJ 2 MG/ML 2 ML VIAL IV PRN ×2 (07:04→11:50)
[2024-02-26] MEDS ORDERED: ePHEDrine sulfate 50 MG/ML AMP IV PRN (07:04)
[2024-02-26] MEDS ORDERED: ATROPINE SULFATE 0.1 MG/ML 10ML SYR IV PRN (07:04)
--- NOTE | 2024-02-26 07:14 | History & Physical Bridge Note ---
Date of Service February 26, 2024 History & Physical Bridge Note I have examined the patient, reviewed the History & Physical and in the interval since the performance of the History & Physical I have noted the following changes of clinical significance: no changes noted
[2024-02-26] MEDS ORDERED: GLYCOPYRROLATE 0.2 MG/ML VIAL ONE (08:08)
[2024-02-26] MEDS ORDERED: ROCURONIUM BROMIDE 10 MG/ML 5 ML VIAL IV ONE ×3 (08:09→10:35)
[2024-02-26] MEDS: ceFAZolin 3000MG 3,000 MG/72.5 ML BAG IV SCH (08:15)
[2024-02-26] MEDS: VANCOMYCIN HCL 1000MG/20ML VIAL ONE (08:38)
[2024-02-26] MEDS: FLOSEAL HEMOSTATIC MATRIX 5ML TOP ONE (11:24)
[2024-02-26] MEDS: THROMBIN 5000 UNITS KIT ONE (11:25)
[2024-02-26] MEDS: GELATIN SPONGE 12-7MM ONE (11:25)
--- NOTE | 2024-02-26 11:48 | Post Operative Brief Note ---
PG Immediate Post Op with CF Date of Surgery February 26, 2024 Pre & Post Diagnosis Operation Date: 02/26/24 07:15 Pre-Op Diagnosis: Cervical Disc Disorder with Cerivcal Radiculopathy Post-Op Diagnosis: Cervical Disc Disorder with Cerivcal Radiculopathy I identified the patient and participated in the time-out.: Yes Procedure Operation Date: 02/26/24 07:15 Actual Procedures p C4-C5, C5-C6 Cervical Artifical Disc Arthroplasty(Not Applicable) - Omid Geiger MD Surgeon Omid Geiger MD Superintendent Division none Estimated Blood Loss 10 Findings Consistent with Post-Op Diagnosis Specimens Specimen Description: No specimen per surgeon Drains Hull Catheter (16f inserted prior to procedure start by Ana Luisa Frank RN; 10cc in balloon; clear, yellow urine returned)
[2024-02-26] MEDS ORDERED: DO NOT ADMINISTER PNEUMOCOCCAL VACCINE PRN (11:50)
[2024-02-26] MEDS ORDERED: PROMETHAZINE 12.5 MG/50.5 ML BAG IV PRN (11:50)
[2024-02-26] MEDS ORDERED: LORazepam 2 MG/1 ML VIAL IV PRN (11:50)
[2024-02-26] MEDS ORDERED: diphenhydrAMINE Capsule 25 MG CAP PO PRN (11:50)
[2024-02-26] MEDS ORDERED: hydrOXYzine HCl 25 MG TAB PO PRN (11:50)
[2024-02-26] MEDS ORDERED: bisacodyL 10 MG SUPP PR PRN (11:50)
[2024-02-26] MEDS ORDERED: ONDANSETRON 4 MG OD TAB PO PRN (11:50)
[2024-02-26] MEDS ORDERED: MAGNESIUM HYDROXIDE SUSP 30 ML UDC PO PRN (11:50)
[2024-02-26] MEDS ORDERED: SOD PHOSPHATE/SOD BIPHOSPHATE ENEMA 132 ML BTL PR PRN (11:50)
[2024-02-26] MEDS ORDERED: RACEPINEPHRINE 2.25% NEBU SOLN 0.5 ML VIAL INH PRN (11:50)
[2024-02-26] MEDS ORDERED: FAMOTIDINE 20 MG TAB PO PRN (11:50)
[2024-02-26] MEDS ORDERED: ACETAMINOPHEN 1,000 MG/100 ML VIAL IV PRN (11:50)
[2024-02-26] MEDS ORDERED: DO NOT ADMINISTER FLU VACCINE PRN (11:50)
[2024-02-26] MEDS ORDERED: NALOXONE HCL 0.4 MG/1 ML VIAL/CARP IV PRN (11:50)
[2024-02-26] MEDS ORDERED: ALUMINUM/MAGNESIUM SUSP 30 ML UDC PO PRN (11:50)
[2024-02-26] MEDS ORDERED: ACETAMINOPHEN 500 MG TAB PO PRN (11:50)
[2024-02-26] MEDS ORDERED: LORazepam 0.5 MG TAB PO PRN (11:50)
[2024-02-26] MEDS ORDERED: dexAMETHasone 8 MG in SYRINGE 0 ML IV PRN (11:50)
[2024-02-26] MEDS ORDERED: METOCLOPRAMIDE HCL INJ 5 MG/ML 2 ML VIAL IV PRN (11:50)
[2024-02-26] MEDS: fentaNYL citrate PF 100 MCG/2 ML VIAL IV PRN (12:03)
[2024-02-26 12:41] LABS: BUN Creatinine Ratio 19.4 (10-20); Calcium 9.2 mg/dl (8.6-10.3); Creatinine Clr Calc Pharmacy 134.6 ml/min; Est GFR (African American) 114.4 ml/min; Est GFR (Non-African American) 98.7 ml/min; Potassium 4.2 mmol/L (3.5-5.1)
--- NOTE | 2024-02-26 12:50 | Anesthesiology Progress Note ---
Date of Service February 26, 2024 Anesthesia Post Procedure Vital Signs Vital Signs: Temp Pulse Resp BP Pulse Ox O2 Del Method O2 Flow Rate 02/26/24 12:40 73 16 137/80 94 Nasal Cannula 2 02/26/24 12:30 80 14 138/74 95 Nasal Cannula 2 02/26/24 12:20 64 14 142/75 H 94 Nasal Cannula 4 02/26/24 12:10 70 17 121/66 94 Nasal Cannula 4 02/26/24 12:00 77 20 138/74 95 Nasal Cannula 4 02/26/24 11:52 97.0 F L 77 19 135/72 96 Nasal Cannula 4 02/26/24 06:06 98.8 F 76 20 145/73 H 95 Room Air Pain Intensity Neck: Pain Intensity: 4 Transfer of Care Handoff Completed per policy Notes Mental Status: alert / awake / arousable and participated in evaluation Patient Amnestic to Procedure: Yes Nausea / Vomiting: adequately controlled Pain: adequately controlled Airway Patency, RR, SpO2: stable & adequate BP & HR: stable & adequate Hydration State: stable & adequate Anesthetic Complications: no major complications apparent and Pt Satisfied with anesthetic care
[2024-02-26] MEDS: LACTATED RINGER'S 1,000 ML IV SCH (13:24)
[2024-02-26] MEDS: HYDROmorphone INJ 0.5 MG/0.5 ML SYR IV PRN (13:33)
--- NOTE | 2024-02-26 14:20 | Fluoroscopy Report ---
FL cervical 2-3V CLINICAL HISTORY: ACDF C4-C6 TECHNIQUE: 13 views were obtained with the C-arm in the OR with the above procedure. Total fluoroscop y time was 135.9 seconds. Radiation dose was 71.25 mGy. Comparison: Comparison is made to cervical spine radiographs 05/14/2020 FINDINGS/IMPRESSION: Intraoperative images were obtained of ACDF placement spanning C4-C6. Please correlate with intraoperative fluoroscopy and operative report. ACT 112: Negative or not required by law. Electronically signed by: Jimmie Rockwell M.D. 02/26/2024 2:18 PM
[2024-02-26] MEDS: ceFAZolin 2000MG 2,000 MG/15 ML SYR IV SCH (15:49)
[2024-02-26] MEDS: oxyCODONE/ACETAMINOPHEN 5mg/325mg TAB PO PRN (15:52)
--- NOTE | 2024-02-26 16:48 | Hospitalist Consultation ---
Date of Consultation February 26, 2024 Assessment & Plan (1) Cervical disc disorder at C5-C6 level with radiculopathy: This is a 69-year-old with past medical history of hypertension, hyperlipidemia, hypothyroidism, and obesity who presented to the hospital today and is status post a C4-C5, C5-C6 cervical artificial disc arthroplasty. -pain management, diet, bowel regimen, and DVT prophylaxis per primary team. -bladder scan prn, patient endorses no urination since surgery thus far. -BMP reviewed 02/25: fasting glucose 138. No history of diabetes, last hgb A1c from 2022. Will update in AM. AM CBC, BMP, Hemoglobin A1c Plan Chronic conditions: HTN: Losartan, hold in AM, currently normotensive GERD: PPI Hypothyroidism: Synthroid Diet: clear liquid DVT prophylaxis: SCD's Code status: full Disposition: inpatient stay pending primary team Supervising Physician Co-Signing Physician Notes Patient was seen and examined independently I discussed the case with Samantha PEREZ I reviewed pertinent past medical social family history and also the plan of care and agree with the plan of care. Patient was seen postoperatively was accompanied by his son he the bandage on his anterior neck he is having improved sensation to his hand still with significant trapezius and upper back pain His physical examination showed no neurological deficits Card exam is regular lungs were clear Patient will be continued be treated for his hypertension however we will hold his losartan in the morning and reassess his blood pressure prior to administering it. If his blood pressure remains low we may consider omitting it on 02/27/2024 Chronic medical problems include hypothyroidism and GERD this will have his home medications continued of Synthroid and a PPI. Patient informs me that he likely be discharged on 02/27/2024 Any exceptions will be noted below History of Present Illness Attending Physician: Omid Geiger MD History of Present Illness This is a 69-year-old with past medical history of hypertension, hyperlipidemia, hypothyroidism, and obesity who presented to the hospital today and is status post a C4-C5, C5-C6 cervical artificial disc arthroplasty. The patient was seen and examined at bedside. He was resting comfortably in bed in no acute distress. Patient reports that he feels as if his muscles in the posterior portion of his neck are tense. He is complaining of pain in his cervical region but denies any additional complaints. He states that his numbness/tingling he has in his left hand typically, has improved since his operation. He denies any chest pain, shortness of breath. He states that he has not urinated since his surgery but does feel an urge to urinate. Per the patient he does have a minor history of BPH but does not typically have many issues voiding. He has not had a bowel movement or pass gas since the surgery as well. As an outpatient, he is compliant with his daily medications and does follow routinely with his PCP. Allergies Allergy/AdvReac Type Severity Reaction Status Date / Time No Known Allergies Allergy Unknown Verified 02/26/24 06:03 Home Medications Medication Instructions Recorded Confirmed Type multivitamin 1 tab PO QAM 05/17/18 02/26/24 History omega-3 fatty acids 1,000 mg 1,000 mg PO QAM 12/28/22 02/26/24 History capsule losartan 50 mg tablet 50 mg PO QAM #90 tabs 09/18/23 02/26/24 Rx pantoprazole 40 mg tablet,delayed 40 mg PO QAM #90 tabs 11/05/23 02/26/24 Rx release (Protonix) levothyroxine 50 mcg tablet 50 mcg PO QAM #90 tabs 12/18/23 02/26/24 Rx levothyroxine 175 mcg tablet 175 mcg PO QAM #90 tabs 12/31/23 02/26/24 Rx acetaminophen 500 mg tablet 1,000 mg PO TID PRN pain 01/29/24 02/26/24 History (Tylenol Extra Strength) Patient History Medical History HTN (hypertension) controlled Hypothyroidism Obesity Hyperlipidemia Per records Elevated PSA Osteoarthritis GERD (gastroesophageal reflux disease) BPH (benign prostatic hyperplasia) no current issues Cervical spinal stenosis Lumbar spinal stenosis History of kidney stones Renal cyst bilateral - monitoring Obstructive sleep apnea Unable to Tolerate CPAP Surgical History History of total right knee replacement Right TKA (12/04/23): SAB at L3-4 + regional at [facility] S/P epidural steroid injection H/O removal of cyst forehead (local anesthesia) Hx of esophagogastroduodenoscopy [facility] (09/20/23) Hx of cystoscopy H/O colonoscopy 01/2017 Repeat 10 yrs S/P T&A (status post tonsillectomy and adenoidectomy) Hx of lithotripsy 2014 S/P right knee arthroscopy S/p bilateral carpal tunnel release S/P arthroscopy of shoulder left rotator cuff repair History of umbilical hernia repair History of appendectomy History of cholecystectomy Family History Mother Cancer of kidney, Onset Age: 92 Father Diabetes Coronary heart disease Myocardial infarction Uncle Lung cancer Other No family history of adverse response to anesthesia Denies family history of Ovarian cancer Prostate cancer Breast cancer Colorectal cancer Stroke Social History Smoking Status: Never smoker Second Hand Exposure: No; Do You Dip or Chew Tobacco: No; Tobacco Cessation Education Requested by Patient: No Hx Alcohol Use: No Hx Substance Use: No Preferred Language: Turkmen Communication Ability: Effective Visual Impairment: No Limitations Hearing Ability: Normal Research Technologist Required: No Beliefs That Will Affect Care: None marital status: Current Living Situation: Spouse current occupational status: retired How many Children do You have: 2 Other Information That Helps Us Care for You: No Feels Safe at Home: Yes Safety Concerns: Feels Safe At This Time Childhood Exposure to Second-Hand Smoke: No Diet: regular caffeine: Yes (coffee daily ) Dental Care, Regularly: Yes Physical Activity Frequency: Daily Seatbelt Use: always Sunscreen Use: Yes (sometimes) Assistive Devices: None Physical Exam 2 Constitutional: WD/WN, vitals as above Respiratory: normal respiratory effort, lungs clear to auscultation Cardiovascular: RRR, no murmur, no edema Skin: no rashes, warm and dry bandage in anterior cervical region Psychiatric: A+Ox3, euthymic affect Results & Data Results & Data Vital Signs (Past 12 Hours) Vital Signs Temp Pulse Pulse Resp BP Pulse Ox O2 Del Method 02/26/24 16:26 36.4 C L 77 16 112/73 94 Nasal Cannula 02/26/24 15:20 36.5 C 74 16 121/73 96 Nasal Cannula 02/26/24 14:25 36.6 C 88 16 120/74 96 Nasal Cannula 02/26/24 13:50 36.5 C 83 18 116/77 94 Nasal Cannula 02/26/24 13:20 Nasal Cannula 02/26/24 13:19 83 20 95 Nasal Cannula 02/26/24 13:17 36.4 C L 81 16 133/85 93 Nasal Cannula 02/26/24 13:00 36.1 C L 76 15 145/72 H 94 Nasal Cannula 02/26/24 12:50 74 16 131/86 93 Nasal Cannula 02/26/24 12:40 73 16 137/80 94 Nasal Cannula 02/26/24 12:30 80 14 138/74 95 Nasal Cannula 02/26/24 12:20 64 14 142/75 H 94 Nasal Cannula 02/26/24 12:10 70 17 121/66 94 Nasal Cannula 02/26/24 12:00 77 20 138/74 95 Nasal Cannula 02/26/24 11:52 36.1 C L 77 19 135/72 96 Nasal Cannula 02/26/24 06:06 37.1 C 76 20 145/73 H 95 Room Air O2 Flow Rate 02/26/24 16:26 2 02/26/24 15:20 2.0 02/26/24 14:25 2 02/26/24 13:50 2.0 02/26/24 13:20 2 02/26/24 13:19 4 02/26/24 13:17 2 02/26/24 13:00 2 02/26/24 12:50 2 02/26/24 12:40 2 02/26/24 12:30 2 02/26/24 12:20 4 02/26/24 12:10 4 02/26/24 12:00 4 02/26/24 11:52 4 02/26/24 06:06 Laboratory Results 02/26/24 12:10 PG Care Time/CCT Total # of Minutes Spent Total Time Spent with Patient: Total time spent is greater than 50% in coordination of care (as documented) at patient's floor/unit and/or counseling patient: Coding Level of Care Code 36992 IN/OBS CONSULT LVL 2,35M Diagnoses Cervical disc disorder at C5-C6 level with radiculopathy M50.122
[2024-02-26] MEDS: DOCUSATE SODIUM/SENNA 50/8.6MG TAB PO SCH (20:07)
[2024-02-27] MEDS: LEVOTHYROXINE SODIUM 175 MCG TABLET PO SCH (06:01)
[2024-02-27] MEDS: LEVOTHYROXINE SODIUM 50 MCG TABLET PO SCH (06:01)
[2024-02-27] MEDS: POLYETHYLENE (MIRALAX) 17 GM PACK PO SCH (06:02)
[2024-02-27 06:17] LABS: Hematocrit (blood only) 37.9 % (42.0-52.0); Hemoglobin 12.6 g/dl (14.0-18.0); Mean Corpuscular Hemoglobin 27.9 pg (25.0-34.0); Mean Corpuscular Hgb Conc 33.2 g/dL (32.0-36.0); Mean Corpuscular Volume 83.8 fL (80.0-100.0); Mean Platelet Volume 8.4 fL (9.4-12.4); Platelet Count 157 K/uL (130-400); RDW Coefficient of Variation 13.5 % (11.5-14.5); RDW Standard Deviation 41.5 fL (36.4-46.3); Red Blood Count 4.52 M/uL (4.70-6.10); White Blood Count 13.62 K/ul (4.8-10.8)
[2024-02-27 06:23] LABS: BUN Creatinine Ratio 19.4 (10-20); Creatinine Clr Calc Pharmacy 145.4 ml/min; Est GFR (African American) 118.1 ml/min; Est GFR (Non-African American) 101.9 ml/min; Potassium 4.2 mmol/L (3.5-5.1)
[2024-02-27 07:26] LABS: Estimated Average Glucose 100 mg/dl; Hemoglobin A1C 5.1 % (4.5-5.6)
[2024-02-27 08:32] VITALS: BP 104/68; RESP 16; TEMP 97.9
[2024-02-27] MEDS: PANTOprazole 40 MG TAB PO SCH (08:34)
--- NOTE | 2024-02-27 08:34 | Orthopedic Progress Note ---
Date of Service February 27, 2024 Subjective Patient seen and examined, he notes distinct improvement in his left arm symptoms that he had before and also have some limited improvement right arm which was not causing any significant amount of symptoms. Has minor soreness with swallowing but no other issues. Exam reveals intact motor strength, no new changes, dressing dry. Impression/plan: Postoperative day 1 from C4-5 and C5-6 anterior decompression and artificial disc replacement with improvement of preoperative symptoms. Patient discharged today he will follow-up in 2 weeks again instructions regarding dressing, he is in agreement with this plan. With Review of Systems All systems reviewed & are unremarkable except as noted in HPI & below. Physical Exam . Results & Data Results & Data Laboratory Results . Diagnostic Findings . PG Care Time/CCT Total # of Minutes Spent Total Time Spent with Patient: Total time spent is greater than 50% in coordination of care (as documented) at patient's floor/unit and/or counseling patient: Coding Level of Care Code 88519 Post Operative Follow-Up
--- NOTE | 2024-02-27 08:38 | Discharge Summary ---
Date of Service February 27, 2024 Admission HPI (Per Admitting) Cervical stenosis and radiculopathy, patient postoperative from anterior cervical decompression and artificial disc replacement at C4-5 and C5-6. Principal Diagnosis Same as "Discharge Diagnosis" noted below under Discharge Instructions. Discharge Exam As per progress note. Discharge Data Consultations 02/26/24 11:50 Consult Hospitalist Routine Procedures Performed Operation Date: 02/26/24 07:15 Actual Procedures p C4-C5, C5-C6 Cervical Artifical Disc Arthroplasty(Not Applicable) - Omid Geiger MD Ordered Studies 02/26/24 07:15 FL cervical 2-3V Routine Hospital Course (1) Cervical disc disorder at C5-C6 level with radiculopathy: As per surgery from 02/26/2024. (2) Cervical disc disorder at C4-C5 level with radiculopathy: PG Care Time/CCT Total # of Minutes Spent Total Time Spent with Patient: Total time spent is greater than 50% in coordination of care (as documented) at patient's floor/unit and/or counseling patient: Discharge Plan Discharge Items Patient Disposition: Home - Self-Care Reason For Visit: Cerivcal Radiculopathy Cervical Spinal Stenosis Discharge Diagnosis: Cervical radiculopathy, cervical stenosis. Condition on Discharge: Good Activity: As commented below Lifting: No more than 10 pounds Bathing: May shower/bathe in 3 days Exercise/Sports: Wait until after follow-up appointment Weightbearing: Full weightbearing Non-emergency contact: Surgeon Call non-emergency contact if: your pain is worsening Follow-up/Referrals: Jet Muhammad, [Primary Care Provider] - Diet: Regular Addtl Attending Provider Instructions: Dressing maintain for 2 days, may begin showers after that, prescription for tramadol to be called in from the ambulatory chart. Follow-up in 2 weeks. Pending Studies at Discharge: No Stand-Alone Forms: My Me[employer], Smoking Cessation Medications and DC Order Prescriptions: Continued multivitamin tablet 1 tab PO QAM losartan 50 mg tablet 50 mg PO QAM Qty: 90 3RF pantoprazole [Protonix] 40 mg tablet,delayed release (DR/EC) 40 mg PO QAM Qty: 90 3RF levothyroxine 50 mcg tablet 50 mcg PO QAM Qty: 90 3RF Rx Instructions: for a total dose of 225mcg omega-3 fatty acids 1,000 mg capsule 1,000 mg PO QAM levothyroxine 175 mcg tablet 175 mcg PO QAM Qty: 90 3RF Rx Instructions: takes with 50mcg for a total dose of 225mcg acetaminophen [Tylenol Extra Strength] 500 mg tablet 1,000 mg PO TID PRN (Reason: pain) Rx Instructions: Take 3 times per day to lessen pain. Discharge Orders: Discharge Order (Routine); Ordered 02/27/24 Ordered By: Omid Geiger Admission Data Admit Date/Time: 02/26/24 11:50 Attending Provider: Omid Geiger Admit Provider: Omid Geiger Primary Care Provider: Jet Muhammad Other Providers: Constantino Huggins; Cristopher Gonzalez; Orlando Davies; Jonathan Kate; Doe Pardo; Denise Squires; Yamile Phelan; Hilaria Mccrary; Cynthia Barraza; Juanjo Higginbotham; Harley Mahmood; Anupama Mera; Tom Jean-Baptiste; Cristopher Ovalle; Johnathon De Paz; Radha Her; Kennedi Sanchez; Kennedi Wheeler; Samantha Andrews; Mckenna Rivera N; Savanna Trivedi; Arthur Ledesma; Gala Cash; Arun Agosto; Jerod Han; Sal Munroe; Alana Hutton; Li Rosario; Aidan Mariee; Tom Wolf; Orlando Mcarthur; Jonathan Bond; Kary Schultz; Chhaya Wilkins; Jigna Parra; Bayron Viera; Jeremiah Dawson; Gilles Tesfaye
[2024-02-27] MEDS ORDERED: LOSARTAN POTASSIUM 50 MG TAB PO SCH (09:00)
[2024-02-27 10:09] VITALS: PULSE 76
--- NOTE | 2024-02-27 10:18 | Hospitalist Progress Note ---
Date of Service February 27, 2024 Assessment & Plan (1) Cervical disc disorder at C5-C6 level with radiculopathy: Plan: This is a 69-year-old with past medical history of hypertension, hyperlipidemia, hypothyroidism, and obesity who presented to the hospital today and is status post a C4-C5, C5-C6 cervical artificial disc arthroplasty. -pain management, diet, bowel regimen, and DVT prophylaxis per primary team. - CBC/BMP reviewed 02/26: stable -Hemoglobin A1c reviewed 02/26: 5.1% Plan Chronic conditions: HTN: Losartan, hold in AM, currently normotensive GERD: PPI Hypothyroidism: Synthroid From a medical standpoint, patient is stable for discharge. Our team will sign off. Please call us back with questions or concerns. Admission and Anticipated Discharge Date Admission Date: February 26, 2024 Subjective Patient seen and examined this morning. Patient reports to be feeling well today. He reports minimal pain in his neck. He is looking forward to being discharged. Physical Exam 2 Constitutional: WD/WN, vitals as above Eyes: PERRL, conjunctivae normal, anicteric sclerae Respiratory: normal respiratory effort, lungs clear to auscultation Cardiovascular: RRR, no murmur, no edema Psychiatric: A+Ox3, euthymic affect Results & Data Results & Data Vital Signs (Past 12 Hours) Vital Signs Temp Pulse Pulse Resp BP Pulse Ox O2 Del Method 02/27/24 10:07 36.6 C 76 61 16 104/68 91 02/27/24 08:20 36.6 C 61 16 104/68 91 Room Air 02/27/24 07:09 65 18 100 Nasal Cannula 02/27/24 06:20 36.5 C 61 15 105/65 98 Nasal Cannula 02/27/24 04:20 36.8 C 78 16 119/78 97 Nasal Cannula 02/27/24 03:56 36.5 C 62 14 119/75 99 Nasal Cannula 02/27/24 03:24 74 18 97 Room Air 02/27/24 02:29 36.5 C 66 16 111/72 96 Nasal Cannula 02/26/24 23:58 36.5 C 71 16 115/71 96 Nasal Cannula 02/26/24 23:17 Nasal Cannula 02/26/24 23:00 86 18 97 Nasal Cannula O2 Flow Rate 02/27/24 10:07 02/27/24 08:20 02/27/24 07:09 2 02/27/24 06:20 2 02/27/24 04:20 2 02/27/24 03:56 2 02/27/24 03:24 02/27/24 02:29 2 02/26/24 23:58 2 02/26/24 23:17 2 02/26/24 23:00 2 Laboratory Results 02/27/24 05:30 02/27/24 05:30 PG Care Time/CCT Total # of Minutes Spent Total Time Spent with Patient: Total time spent is greater than 50% in coordination of care (as documented) at patient's floor/unit and/or counseling patient: Coding Level of Care Code 15332 SUB INP/OBS CARE 2MIN Diagnoses Cervical disc disorder at C5-C6 level with radiculopathy M50.122
[2024-02-27 12:01] VITALS: O2SAT 95
--- NOTE | 2024-02-28 08:53 | Operative Report ---
PG Post Operative Report Pre & Post Diagnosis Operation Date: 02/26/24 07:15 Pre-Op Diagnosis: Cervical Disc Disorder with Cerivcal Radiculopathy Post-Op Diagnosis: Cervical Disc Disorder with Cerivcal Radiculopathy I identified the patient and participated in the time-out.: Yes Procedure Operation Date: 02/26/24 07:15 Actual Procedures p C4-C5, C5-C6 Cervical Artifical Disc Arthroplasty(Not Applicable) - Omid Geiger MD Surgeon Omid Geiger MD Accounting Methods Analyst none Estimated Blood Loss 10 Findings Consistent with Post-Op Diagnosis Specimens none Description of Procedure 1. C4-5 anterior decompression and artificial disc replacement. Mobi-C 17 x 17 x 5 mm. (06069) 2. C5-6 anterior decompression and artificial disc replacement. Mobi-C 17 x 19 x 5 mm. (12572) Patient was taken operating room and after adequate anesthesia was carefully positioned supine on the OSI flattop table. After a preprepped, the patient was carefully positioned on the table for the anterior approach to the C4-5 and C5-6 levels, fluoroscopy was brought in I marked for the approximate location of the incision. Prep and drape was completed, I began with a left-sided approach transverse incision and from here I advanced down in standard fashion to the medial border of the sternocleidomastoid and to the anterior aspect of the cervical spine. Once confirmed, I then mobilized the soft tissues away from the anterior aspect of the disc bases at C4-5 and C5-6, I then used fluoroscopy to place the distractor pins at C4 and C5. Retractors were then set, I then moved ahead with incising the anterior annulus and then from there mobilizing the degenerative disc at this level. Care was taken to carefully elevate this and once elevated to the proper level, continued with the thorough discectomy and removal of cartilage from the endplates. Bur was then used to remove the overhanging spondylosis across the interspace posteriorly followed by combination curettes and Kerrison punches to complete the decompression at the interspace across out to the uncinates on both sides. With this now completed I then went through trials selecting the size artificial disc replacement and this was inserted under fluoroscopic control with excellent placement. With this level completed, the distractor pin was removed to C4 advanced up to the C6 le lidia, combination of Floseal and bone wax was applied to the insertion point. The C6 distractor pin was placed under fluoroscopic control, and then the retractors were reset. Anterior annulotomy was performed, I then in a similar fashion remove the disc material and elevated the disc space to its proper height. The decompression was performed across the interspace to the dura and completed out to the uncinates on both sides. Once completed, I then selected trials once again and selected the same size artificial disc replacement which was then inserted under fluoroscopic control. Final images were obtained revealing excellent placement of the devices, the distractor pins were removed and Floseal and bone wax was applied. Final inspection revealed no issues, I then placed antibiotic powder and then closed the operative site with 3-0 Vicryl sutures followed by benzoin and Steri-Strips. Patient tolerated procedure well was taken recovery room satisfactory condition. I attest to the content of the Intraoperative Record and any orders documented therein. Any exceptions are noted below. I attest to the content of the Intraoperative Record and any orders documented therein. Any exceptions are noted below.
== END 2024-02-27 10:47 | disposition home or self-care (01) ==
LOC: 3E 05:36 → ASU 05:36

== ENCOUNTER 2024-03-01 12:15 | Observation (INO) ==
--- NOTE | 2024-03-01 12:47 | Emergency Department Note ---
Impression & Plan Post-operative pain, Breathing difficulty ED Provider Note NAME: LAURO SYED AGE: 69 SEX: M : 1955 ARRIVES VIA: Walk-In INFORMANT: Patient, ED PROVIDER(S): Last Valdez DO CHIEF COMPLAINT: Postoperative swelling HPI: The patient is a 69-year-old male who presented to the emergency department for an evaluation of postoperative swelling. The patient had an anterior approach to a cervical spine disc surgery because of cervical radiculopathy. The patient has started noticing swelling and problems swallowing over the course the last few days. He also notices some dysesthesia to the right forearm and some numbness over the left fifth digit. Before the surgery he did have numbness in his left hand. He denies having any fever. He denies having any trauma. He is not currently taking any blood thinners. The patient called orthopedics today and was referred to the emergency department. ROS: See above HPI for pertinent positives & negatives. A total of 10 systems reviewed and were otherwise negative. PAST MEDICAL HISTORY: See Below PAST SURGICAL HISTORY: See Below FAMILY HISTORY: See Below SOCIAL HISTORY: See Below HOME MEDICATIONS: See Below ALLERGIES: See Below VITALS: See Below PHYSICAL EXAMINATION: GENERAL: Patient is awake alert in no acute distress patient is resting comfortably and showing no signs of anxiety EYES: The conjunctivae are clear. The pupils are round and reactive. EARS, NOSE, MOUTH AND THROAT: The nose is without any evidence of any deformity. Mucous membranes are moist. Tongue is midline. NECK: There is anterior tenderness and fullness especially on the left side of the neck. The surgical site was noted. There is no erythema drainage or dehiscence. RESPIRATORY: Normal respiratory effort is noted there is no evidence of wheezing rhonchi or rales CARDIOVASCULAR: Regular rate and rhythm noted there no murmurs rubs or gallops normal S1 normal S2. GASTROINTESTINAL: The abdomen is soft. Abdomen is nontender. MUSCULOSKELETAL/EXTREMITIES: There is no evidence of gross deformity full range of motion is noted in the hips and shoulders. SKIN: There is no obvious evidence of any rash. There are no petechiae, pallor or cyanosis noted. NEUROLOGIC: Patient is awake alert and oriented x3. Strength is symmetric in both lower extremities. Patient has motor intact to median ulnar and radial nerve distributions in both hands. MEDICAL DECISION MAKING: The patient is a 69-year-old male who presented to the emergency department for an evaluation of left sided neck swelling. The patient is status post cervical disc surgery with an anterior approach. He started having problems swallowing and breathing over the course of the last 48 hours. I discussed the patient's laboratory and radiographic studies with him. The area of the postoperative site was well-healing. There is no erythema drainage or dehiscence. Because the presence of swelling further laboratory and radiographic studies were obtained including CT of the neck. There does appear to be some inflammation that could be normal healing but it does appear to be causing the patient to have some degree of difficulty breathing and airway compromise. I discussed the patient's condition with the on-call orthopedic physician. He is agreed to evaluate the patient in the emergency department for further management and disposition. Triage Nursing notes reviewed. Prior medical records reviewed Vital Signs: reviewed and remarkable for no significant abnormalities Differential diagnosis: Cervical strain, fracture, cervical disc disease, lymphadenitis, meningitis, tumor, arterial dissection, thyroiditis, parotitis, mastoiditis, neurologic, cardiovascular, as well as other pathologies. ER treatment provided: See below Diagnostics interpreted by me: ECG: EKG was obtained in the emergency department. My interpretation is normal sinus rhythm at 86 bpm. There is no ectopy. There is no acute ST segment abnormalities noted. This was compared to a tracing from January 07, 2015. No changes were noted. Cardiac Monitoring: An order was placed for continuous cardiac monitoring. The monitor shows a rate of 81 bpm with sinus rhythm. Laboratory studies: As stated above and show below. Imaging studies: See below. Radiographic imaging was reviewed by myself Consultation(s): I discussed this case with Dr. Lainez who is on for orthopedic surgery. I discussed this case with Dr. Ovalle who is on for hospitalist group. They will evaluate the patient for medical management. Past Med/Surg History Problem List (Updated 03/01/24 @ 15:25 by Last Valdez DO) Breathing difficulty (Acute) Post-operative pain (Acute) Cervical disc disorder at C5-C6 level with radiculopathy Cervical disc disorder at C4-C5 level with radiculopathy Encounter for pre-operative examination Degenerative arthritis of knee, bilateral Impingement of left shoulder Asbestos exposure Lumbar radiculopathy Hypertension Hypothyroidism Medical History HTN (hypertension) controlled Hypothyroidism Obesity Hyperlipidemia Per records Elevated PSA Osteoarthritis GERD (gastroesophageal reflux disease) BPH (benign prostatic hyperplasia) no current issues Cervical spinal stenosis Lumbar spinal stenosis History of kidney stones Renal cyst bilateral - monitoring Obstructive sleep apnea Unable to Tolerate CPAP Surgical History History of total right knee replacement Right TKA (12/04/23): SAB at L3-4 + regional at [facility] S/P epidural steroid injection H/O removal of cyst forehead (local anesthesia) Hx of esophagogastroduodenoscopy [facility] (09/20/23) Hx of cystoscopy H/O colonoscopy 01/2017 Repeat 10 yrs S/P T&A (status post tonsillectomy and adenoidectomy) Hx of lithotripsy 2014 S/P right knee arthroscopy S/p bilateral carpal tunnel release S/P arthroscopy of shoulder left rotator cuff repair History of umbilical hernia repair History of appendectomy History of cholecystectomy Family History Mother Cancer of kidney, Onset Age: 92 Father Diabetes . age 57 Coronary heart disease age 57 Myocardial infarction Uncle Lung cancer Other No family history of adverse response to anesthesia Denies family history of Ovarian cancer Prostate cancer Breast cancer Colorectal cancer Stroke Social History Smoking Status: Never smoker Second Hand Exposure: No; Do You Dip or Chew Tobacco: No; Hx Alcohol Use: No Hx Substance Use: No Preferred Language: Syriac Communication Ability: Effective Visual Impairment: No Limitations Hearing Ability: Normal Day Care Home Provider Required: No Beliefs That Will Affect Care: None marital status: Current Living Situation: Spouse current occupational status: retired How many Children do You have: 2 Feels Safe at Home: Yes Childhood Exposure to Second-Hand Smoke: No Diet: regular caffeine: Yes (coffee daily ) Dental Care, Regularly: Yes Physical Activity Frequency: Daily Seatbelt Use: always Sunscreen Use: Yes (sometimes) Assistive Devices: None Allergies Allergies Allergy/AdvReac Type Severity Reaction Status Date / Time No Known Allergies Allergy Unknown Verified 02/26/24 06:03 Home Meds Home Medications Medication Instructions Recorded Confirmed multivitamin 1 tab PO QAM 05/17/18 03/01/24 omega-3 fatty acids 1,000 mg 1,000 mg PO QAM 12/28/22 03/01/24 capsule acetaminophen 500 mg tablet 1,000 mg PO TID PRN pain 01/29/24 03/01/24 (Tylenol Extra Strength) Previous Rx's Medication Instructions Recorded losartan 50 mg tablet 50 mg PO QAM #90 tabs 09/18/23 pantoprazole 40 mg tablet,delayed 40 mg PO QAM #90 tabs 11/05/23 release (Protonix) levothyroxine 50 mcg tablet 50 mcg PO QAM #90 tabs 12/18/23 levothyroxine 175 mcg tablet 175 mcg PO QAM #90 tabs 12/31/23 Results & Data (ED) Vital Signs Vital Signs - 24 hr 03/01/24 12:28 03/01/24 13:10 03/01/24 13:10 Temperature 36.6 C Temperature Source Temporal Artery Scan Pulse Rate 92 H 84 Pulse Rate [Apical] 84 Pulse Rate from SpO2 Sensor Pulse Rhythm Regular Pulse Rhythm [Apical] Regular Pulse Strength [Apical] Normal Respiratory Rate 20 20 20 Respiratory Effort / Characteristics Non-Labored Spontaneous Non-Labored Spontaneous Respiratory Depth Normal Normal Respiratory Pattern Regular Regular Blood Pressure 129/85 Blood Pressure [Left Arm] 107/77 Blood Pressure Mean 99 Blood Pressure Mean [Left Arm] 87 Blood Pressure Position [Left Arm] Lying Pulse Oximetry 94 94 94 Oxygen Delivery Method Room Air Room Air Room Air Sepsis Recent Fever Within 48 Hours No Sepsis New/Unexplained Change in Mental Status N/A Sepsis Action Taken by Nursing No Action Required 03/01/24 13:18 03/01/24 13:24 03/01/24 13:27 Temperature Temperature Source Pulse Rate 82 82 87 Pulse Rate [Apical] Pulse Rate from SpO2 Sensor 79 84 Pulse Rhythm Pulse Rhythm [Apical] Pulse Strength [Apical] Respiratory Rate 20 23 Respiratory Effort / Characteristics Respiratory Depth Respiratory Pattern Blood Pressure Blood Pressure [Left Arm] Blood Pressure Mean Blood Pressure Mean [Left Arm] Blood Pressure Position [Left Arm] Pulse Oximetry 94 94 Oxygen Delivery Method Sepsis Recent Fever Within 48 Hours Sepsis New/Unexplained Change in Mental Status Sepsis Action Taken by Nursing 03/01/24 13:42 03/01/24 13:51 03/01/24 14:03 Temperature Temperature Source Pulse Rate 84 80 81 Pulse Rate [Apical] Pulse Rate from SpO2 Sensor 81 81 75 Pulse Rhythm Pulse Rhythm [Apical] Pulse Strength [Apical] Respiratory Rate 18 18 17 Respiratory Effort / Characteristics Respiratory Depth Respiratory Pattern Blood Pressure Blood Pressure [Left Arm] Blood Pressure Mean Blood Pressure Mean [Left Arm] Blood Pressure Position [Left Arm] Pulse Oximetry 94 97 96 Oxygen Delivery Method Sepsis Recent Fever Within 48 Hours Sepsis New/Unexplained Change in Mental Status Sepsis Action Taken by Nursing 03/01/24 14:09 03/01/24 14:28 03/01/24 14:30 Temperature Temperature Source Pulse Rate 79 Pulse Rate [Apical] Pulse Rate from SpO2 Sensor 80 Pulse Rhythm Pulse Rhythm [Apical] Pulse Strength [Apical] Respiratory Rate Respiratory Effort / Characteristics Respiratory Depth Respiratory Pattern Blood Pressure 134/96 Blood Pressure [Left Arm] 134/96 Blood Pressure Mean 103 Blood Pressure Mean [Left Arm] 108 Blood Pressure Position [Left Arm] Lying Pulse Oximetry 95 Oxygen Delivery Method Sepsis Recent Fever Within 48 Hours Sepsis New/Unexplained Change in Mental Status Sepsis Action Taken by Nursing 03/01/24 14:42 03/01/24 15:00 03/01/24 15:41 Temperature Temperature Source Pulse Rate 81 78 86 Pulse Rate [Apical] Pulse Rate from SpO2 Sensor 79 69 82 Pulse Rhythm Pulse Rhythm [Apical] Pulse Strength [Apical] Respiratory Rate 20 16 21 Respiratory Effort / Characteristics Respiratory Depth Respiratory Pattern Blood Pressure 118/75 Blood Pressure [Left Arm] Blood Pressure Mean 89 Blood Pressure Mean [Left Arm] Blood Pressure Position [Left Arm] Pulse Oximetry 99 98 97 Oxygen Delivery Method Sepsis Recent Fever Within 48 Hours Sepsis New/Unexplained Change in Mental Status Sepsis Action Taken by Nursing 03/01/24 16:11 03/01/24 16:23 Temperature Temperature Source Pulse Rate 86 86 Pulse Rate [Apical] Pulse Rate from SpO2 Sensor 87 85 Pulse Rhythm Pulse Rhythm [Apical] Pulse Strength [Apical] Respiratory Rate 22 22 Respiratory Effort / Characteristics Respiratory Depth Respiratory Pattern Blood Pressure Blood Pressure [Left Arm] Blood Pressure Mean Blood Pressure Mean [Left Arm] Blood Pressure Position [Left Arm] Pulse Oximetry 96 96 Oxygen Delivery Method Sepsis Recent Fever Within 48 Hours Sepsis New/Unexplained Change in Mental Status Sepsis Action Taken by Shelter Medications Current Medication List: was personally reviewed by me Laboratory Data Attestation: I reviewed the patient's lab results. 03/01/24 12:55 03/01/24 12:55 Lab Results 03/01/24 03/01/24 Range/Units 12:55 13:04 WBC 11.27 H (4.8-10.8) K/ul RBC 5.31 (4.70-6.10) M/uL Hgb 15.0 (14.0-18.0) g/dl POC Hgb 14.6 (14.0-18.0) g/dl Hct 43.2 (42.0-52.0) % POC Hct 43 (42-52) % MCV 81.4 (80.0-100.0) fL MCH 28.2 (25.0-34.0) pg MCHC 34.7 (32.0-36.0) g/dL RDW Std Deviation 39.5 (36.4-46.3) fL RDW Coeff of Gwen 13.3 (11.5-14.5) % Plt Count 223 (130-400) K/uL MPV 8.6 L (9.4-12.4) fL Immature Gran % (Auto) 0.5 % Neut % (Auto) 77.4 % Lymph % (Auto) 11.2 % [place] % (Auto) 8.3 % Eos % (Auto) 2.2 % Baso % (Auto) 0.4 % Neut # (Auto) 8.72 H (1.40-6.50) K/uL Lymph # (Auto) 1.26 (1.20-3.40) K/uL [place] # (Auto) 0.93 H (0.11-0.59) K/uL Eos # (Auto) 0.25 (0.00-0.50) K/uL Baso # (Auto) 0.05 (0.00-0.20) K/uL Immature Gran # (Auto) 0.06 (0.01-0.20) K/uL PT 11.0 (9.0-12.0) Seconds INR 1.0 (0.9-1.1) APTT 29 (21-31) Seconds PTT Ratio 1.1 POC Sodium 138 (135-144) mmol/L Sodium 137 (136-145) mmol/L POC Potassium 3.7 (3.3-5.0) mmol/L Potassium 3.8 (3.5-5.1) mmol/L POC Chloride 100 L (101-112) mmol/L Chloride 102 (98-107) mmol/L Carbon Dioxide 27 (21-32) mmol/L POC Total CO2 25 (24-31) mmol/L Anion Gap 8 (3-11) POC Anion Gap 18.0 (16-25) mmol/L POC BUN 10 (7-18) mg/dl BUN 11 (6-23) mg/dl Creatinine 0.66 (0.6-1.4) mg/dl POC Creatinine 0.7 (0.6-1.3) mg/dl Est Cr Clr Drug Dosing 134.7 ml/min eGFR 102.16 BUN/Creatinine Ratio 16.7 (10-20) Glucose 112 H (70-99(Fasting)) mg/dl POC Glucose (other) 114 H (70-99) mg/dl Calcium 9.8 (8.6-10.3) mg/dl POC Ioniz Calcium Dk 1.21 (1.12-1.32) mmol/l Total Bilirubin 0.7 (0.2-1.0) mg/dl AST 18 (13-39) U/L ALT 23 (7-52) U/L Alkaline Phosphatase 105 H (34-104) U/L Troponin I High Sens 5.3 (0-20) pg/ml Total Protein 7.6 (6.0-8.3) gm/dl Albumin 4.3 (3.4-5.0) gm/dl Globulin 3.3 (2.5-4.0) gm/dl Albumin/Globulin Ratio 1.3 (0.9-2) Lipase 19 (11-82) U/L Administered Medications Discontinued Medications Sodium Chloride (Nss) 500 mls @ 999 mls/hr IV .Q31M STA Stop: 03/01/24 13:05 Last Infusion: 03/01/24 14:34 Dose: Infused Documented By: Admin: 03/01/24 12:57 Dose: 999 mls/hr Documented By: Ioversol (Optiray 320 100ml) 94 ml IV ONCE ONE Stop: 03/01/24 13:34 Last Admin: 03/01/24 13:33 Dose: 94 ml Documented By: RAMILA Imaging Data Attestation: I personally reviewed and interpreted this imaging study as follows: My Impression: 1 view chest x-ray was obtained in the emergency department. My interpretation is no free air or definite filtrate, final report below. Radiologist's Impression: Chest X-Ray 03/01/24 12:35 XR chest 1V portable CLINICAL HISTORY: Chest pain, nonspecific COMPARISON STUDY: Chest radiograph 08/02/2023. FINDINGS: Lung volumes are normal. Lungs are clear. There is no pneumothorax or pleural effusion. Cardiac size is normal. Mediastinal contours are stable. There is no evidence for pulmonary edema. IMPRESSION: No acute cardiopulmonary findings. ACT 112: Negative or not required by law. Electronically signed by: Alex Dan M.D. 03/01/2024 1:44 PM Soft Tissue Neck CT 03/01/24 12:44 CT OF THE NECK WITH IV CONTRAST CLINICAL HISTORY: Postoperative swelling. Difficulty swallowing. COMPARISON STUDY: MRI of the cervical spine March 25, 2018. Fluoroscopic images of the cervical spine February 26, 2024. TECHNIQUE: Following IV administration of Optiray, helical axial images of the neck were obtained. Sagittal and coronal reconstructions were viewed. Automated exposure control was utilized for the study. A dose lowering technique was utilized adhering to the principles of ALARA. FINDINGS: Visualized portions of the intracranial contents are unremarkable. Parotid and submandibular glands are normal. Epiglottis is normal. There are no cervical spine fractures. No well-defined fluid collections are present. There are postoperative findings consistent with C4-C5 and C5-C6 anterior discectomies. Hardware is intact. There are no unexpected radiopaque foreign bodies. There is moderate prevertebral and left neck stranding and fluid. There is a small amount of gas. Associated skin thickening of the left neck is present. This edema results in moderate narrowing of the supraglottic airway. There is also mass effect upon the hypopharynx. Visualized portions of the lung apices are unremarkable. Major vasculature of the neck is patent. IMPRESSION: 1. Status post C4-C5 and C5-C6 anterior discectomies. Hardware intact. No fractures. No unexpected radiopaque foreign bodies. 2. Moderate associated prevertebral and left neck stranding and fluid with a small amount of soft tissue gas. This gas is likely postsurgical. Edema and stranding is nonspecific in the early postoperative setting and may be postsurgical. An infectious process could appear similar by imaging. No hematoma. No well-defined fluid collection. Edema results in mass effect upon the supraglottic airway and hypopharynx with moderate narrowing. Close clinical follow-up is recommended. ACT 112: Negative or not required by law. Electronically signed by: Alex Dan M.D. 03/01/2024 1:52 PM Discharge Plan Visit Data Chief Complaint: Neck Injury/Pain Stated Complaint: SPINAL SURGERY ON NECK ED Provider: Last Valdez Discharge Problem: Post-operative pain, Breathing difficulty Patient Disposition: Being Evaluated by Hospitalist Forms Stand Alone Forms: [facility] Prescriptions Prescriptions: No Action multivitamin tablet 1 tab PO QAM losartan 50 mg tablet 50 mg PO QAM Qty: 90 3RF pantoprazole [Protonix] 40 mg tablet,delayed release (DR/EC) 40 mg PO QAM Qty: 90 3RF levothyroxine 50 mcg tablet 50 mcg PO QAM Qty: 90 3RF Rx Instructions: for a total dose of 225mcg omega-3 fatty acids 1,000 mg capsule 1,000 mg PO QAM levothyroxine 175 mcg tablet 175 mcg PO QAM Qty: 90 3RF Rx Instructions: takes with 50mcg for a total dose of 225mcg acetaminophen [Tylenol Extra Strength] 500 mg tablet 1,000 mg PO TID PRN (Reason: pain) Rx Instructions: Take 3 times per day to lessen pain. Referrals Referrals: Jet Muhammad, [Primary Care Provider] -
[2024-03-01] MEDS: SODIUM CHLORIDE 0.9% 500 ML IV STA (12:57)
[2024-03-01 13:17] LABS: iSTAT Creatinine 0.7 mg/dl (0.6-1.3); iSTAT Hemoglobin 14.6 g/dl (14.0-18.0); iSTAT Ionized Calcium 1.21 mmol/l (1.12-1.32); iSTAT Potassium 3.7 mmol/L (3.3-5.0)
[2024-03-01 13:18] LABS: Basophils # (auto) 0.05 K/uL (0.00-0.20); Basophils % (auto) 0.4 %; Eosinophils # (auto) 0.25 K/uL (0.00-0.50); Eosinophils % (auto) 2.2 %; Hematocrit (blood only) 43.2 % (42.0-52.0); Immature Granulocytes # (auto) 0.06 K/uL (0.01-0.20); Immature Granulocytes % (auto) 0.5 %; Lymphocytes # (auto) 1.26 K/uL (1.20-3.40); Lymphocytes % (auto) 11.2 %; Mean Corpuscular Hemoglobin 28.2 pg (25.0-34.0); Mean Corpuscular Hgb Conc 34.7 g/dL (32.0-36.0); Mean Corpuscular Volume 81.4 fL (80.0-100.0); Mean Platelet Volume 8.6 fL (9.4-12.4); Monocytes # (auto) 0.93 K/uL (0.11-0.59); Monocytes % (auto) 8.3 %; Neutrophils # (auto) 8.72 K/uL (1.40-6.50); Neutrophils % (auto) 77.4 %; Platelet Count 223 K/uL (130-400); RDW Coefficient of Variation 13.3 % (11.5-14.5); RDW Standard Deviation 39.5 fL (36.4-46.3); Red Blood Count 5.31 M/uL (4.70-6.10); White Blood Count 11.27 K/ul (4.8-10.8)
[2024-03-01] MEDS: OPTIRAY 320 100ml IV ONE (13:33)
[2024-03-01 13:35] LABS: Albumin Globulin Ratio 1.3 (0.9-2); Albumin Level 4.3 gm/dl (3.4-5.0); BUN Creatinine Ratio 16.7 (10-20); Bilirubin,Total 0.7 mg/dl (0.2-1.0); Calcium 9.8 mg/dl (8.6-10.3); Creatinine Clr Calc Pharmacy 134.7 ml/min; Globulin 3.3 gm/dl (2.5-4.0); Potassium 3.8 mmol/L (3.5-5.1); Total Protein 7.6 gm/dl (6.0-8.3)
[2024-03-01 13:41] LABS: Troponin I High Sensitivity 5.3 pg/ml (0-20)
[2024-03-01 13:44] LABS: Partial Thromboplastin Ratio 1.1; Partial Thromboplastin Time 29 Seconds (21-31)
--- NOTE | 2024-03-01 13:45 | XRay Report ---
XR chest 1V portable CLINICAL HISTORY: Chest pain, nonspecific COMPARISON STUDY: Chest radiograph 08/02/2023. FINDINGS: Lung volumes are normal. Lungs are clear. There is no pneumothorax or pleural effusion. Car diac size is normal. Mediastinal contours are stable. There is no evidence for pulmonary edema. IMPRESSION: No acute cardiopulmonary findings. ACT 112: Negative or not required by law. Electronically signed by: Alex Dan M.D. 03/01/2024 1:44 PM
--- NOTE | 2024-03-01 13:54 | CT Scan Report ---
CT OF THE NECK WITH IV CONTRAST CLINICAL HISTORY: Postoperative swelling. Difficulty swallowing. COMPARISON STUDY: MRI of the cervical spine March 25, 2018. Fluoroscopic images of the cervical sp ine February 26, 2024. TECHNIQUE: Following IV administration of Optiray, helical axial images of the neck were obtained. Sagittal and coronal reconstructions were viewed. Automated exposure control was utilized for the st udy. A dose lowering technique was utilized adhering to the principles of ALARA. FINDINGS: Visualized portions of the intracranial contents are unremarkable. Parotid and submandibul ar glands are normal. Epiglottis is normal. There are no cervical spine fractures. No well-defined fl uid collections are present. There are postoperative findings consistent with C4-C5 and C5-C6 anterio r discectomies. Hardware is intact. There are no unexpected radiopaque foreign bodies. There is moder ate prevertebral and left neck stranding and fluid. There is a small amount of gas. Associated skin t hickening of the left neck is present. This edema results in moderate narrowing of the supraglottic a irway. There is also mass effect upon the hypopharynx. Visualized portions of the lung apices are unr emarkable. Major vasculature of the neck is patent. IMPRESSION: 1. Status post C4-C5 and C5-C6 anterior discectomies. Hardware intact. No fractures. No unexpected ra diopaque foreign bodies. 2. Moderate associated prevertebral and left neck stranding and fluid with a small amount of soft tis raad gas. This gas is likely postsurgical. Edema and stranding is nonspecific in the early postoperati ve setting and may be postsurgical. An infectious process could appear similar by imaging. No hematom a. No well-defined fluid collection. Edema results in mass effect upon the supraglottic airway and hy popharynx with moderate narrowing. Close clinical follow-up is recommended. ACT 112: Negative or not required by law. Electronically signed by: Alex Dan M.D. 03/01/2024 1:52 PM
--- NOTE | 2024-03-01 16:57 | Hospitalist Consultation ---
Date of Consultation March 01, 2024 Assessment & Plan (1) Post-operative pain: Pain and swelling post operatively. No acute infection suspected on clinical exam or history. Management by orthopedics (2) Breathing difficulty: No stridor on exam just having more difficulty from the swelling No chest pain, tachycardia or hypoxia to suggest pulmonary emboli CXR unremarkable and WBC downtrending from operation (3) HTN (hypertension): [place] losartan (4) Obstructive sleep apnea: Intolerant to CPAP but noted in history (5) GERD (gastroesophageal reflux disease): No acute problem Continue pantoprazole (6) Hypothyroidism: TSH WNl in January Continue levothyroxine Plan VTE Prophylaxis - per primary orthopedic team Diet - full liquids Disposition - per primary orthopedic team History of Present Illness Reason for Consultation: Medical management Requesting Physician: Dr Valdez History of Present Illness Philip Hill is a 69 year old male who presents to the ER with increased neck swelling, difficulty swallowing and breathing since his C4-C5, C5-C6 Cervical Artificial Disc Arthroplasty on February 27. Patient called orthopedics today and recommended coming to the ER for evaluation. He notes ongoing tingling and numbness in his left little finger but otherwise pre-operative symptoms of radiculopathy have improved. His shortness of breath is only on exertion such as while walking back up from his garage today. Due to the swelling he finds it more difficulty to take deep breaths. No fever, chills, chest pain, cough, nasal congestion, sinus pain. No hisotyr of PE or DVT. Allergies Allergy/AdvReac Type Severity Reaction Status Date / Time No Known Allergies Allergy Unknown Verified 02/26/24 06:03 Home Medications Medication Instructions Recorded Confirmed Type multivitamin 1 tab PO QAM 05/17/18 03/01/24 History omega-3 fatty acids 1,000 mg 1,000 mg PO QAM 12/28/22 03/01/24 History capsule losartan 50 mg tablet 50 mg PO QAM #90 tabs 09/18/23 03/01/24 Rx pantoprazole 40 mg tablet,delayed 40 mg PO QAM #90 tabs 11/05/23 03/01/24 Rx release (Protonix) levothyroxine 50 mcg tablet 50 mcg PO QAM #90 tabs 12/18/23 03/01/24 Rx levothyroxine 175 mcg tablet 175 mcg PO QAM #90 tabs 12/31/23 03/01/24 Rx acetaminophen 500 mg tablet 1,000 mg PO TID PRN pain 01/29/24 03/01/24 History (Tylenol Extra Strength) Patient History Medical History HTN (hypertension) controlled Hypothyroidism Obesity Hyperlipidemia Per records Elevated PSA Osteoarthritis GERD (gastroesophageal reflux disease) BPH (benign prostatic hyperplasia) no current issues Cervical spinal stenosis Lumbar spinal stenosis History of kidney stones Renal cyst bilateral - monitoring Obstructive sleep apnea Unable to Tolerate CPAP Surgical History History of total right knee replacement Right TKA (12/04/23): SAB at L3-4 + regional at [facility] S/P epidural steroid injection H/O removal of cyst forehead (local anesthesia) Hx of esophagogastroduodenoscopy [facility] (09/20/23) Hx of cystoscopy H/O colonoscopy 01/2017 Repeat 10 yrs S/P T&A (status post tonsillectomy and adenoidectomy) Hx of lithotripsy 2014 S/P right knee arthroscopy S/p bilateral carpal tunnel release S/P arthroscopy of shoulder left rotator cuff repair History of umbilical hernia repair History of appendectomy History of cholecystectomy Family History Mother Cancer of kidney, Onset Age: 92 Father Diabetes . 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 Beliefs That Will Affect Care: None marital status: Current Living Situation: Spouse current occupational status: retired How many Children do You have: 2 Other Information That Helps Us Care for You: No Feels Safe at Home: Yes Safety Concerns: Feels Safe At This Time Childhood Exposure to Second-Hand Smoke: No Diet: regular caffeine: Yes (coffee daily ) Dental Care, Regularly: Yes Physical Activity Frequency: Daily Seatbelt Use: always Sunscreen Use: Yes (sometimes) Assistive Devices: None Review of Systems Review of Systems: All systems reviewed & are unremarkable except as noted in HPI & below Physical Exam Constitutional: WD/WN, vitals as above Neck: right sided neck swelling without significant erythema Respiratory: normal respiratory effort, lungs clear to auscultation no stridor Cardiovascular: RRR, no murmur, no edema Gastrointestinal (Abdomen): normal bowel sounds, soft, nontender, no hepatosplenomegaly Skin: no rashes, warm and dry Neurologic: moves all extremities and awake; not confused Psychiatric: A+Ox3, euthymic affect Results & Data Results & Data Vital Signs (Past 12 Hours) Vital Signs Temp Pulse Pulse Resp BP BP Pulse Ox 03/01/24 16:50 89 16 92 03/01/24 16:41 84 20 95 03/01/24 16:35 81 96 03/01/24 16:23 86 22 96 03/01/24 16:11 86 22 96 03/01/24 15:41 86 21 118/75 97 03/01/24 15:00 78 16 98 03/01/24 14:42 81 20 99 03/01/24 14:30 134/96 03/01/24 14:28 134/96 03/01/24 14:09 79 95 03/01/24 14:03 81 17 96 03/01/24 13:51 80 18 97 03/01/24 13:42 84 18 94 03/01/24 13:27 87 03/01/24 13:24 82 23 94 03/01/24 13:18 82 20 94 03/01/24 13:10 84 20 94 03/01/24 13:10 84 20 107/77 94 03/01/24 12:28 36.6 C 92 H 20 129/85 94 O2 Del Method 03/01/24 16:50 03/01/24 16:41 03/01/24 16:35 03/01/24 16:23 03/01/24 16:11 03/01/24 15:41 03/01/24 15:00 03/01/24 14:42 03/01/24 14:30 03/01/24 14:28 03/01/24 14:09 03/01/24 14:03 03/01/24 13:51 03/01/24 13:42 03/01/24 13:27 03/01/24 13:24 03/01/24 13:18 03/01/24 13:10 Room Air 03/01/24 13:10 Room Air 03/01/24 12:28 Room Air Laboratory Results Abnormal lab results 03/01/24 03/01/24 Range/Units 12:55 13:04 WBC 11.27 H (4.8-10.8) K/ul MPV 8.6 L (9.4-12.4) fL Neut # (Auto) 8.72 H (1.40-6.50) K/uL Cowley # (Auto) 0.93 H (0.11-0.59) K/uL ESR 67 H (0-20) mm/hr POC Chloride 100 L (101-112) mmol/L Glucose 112 H (70-99(Fasting)) mg/dl POC Glucose (other) 114 H (70-99) mg/dl Alkaline Phosphatase 105 H (34-104) U/L C-Reactive Protein 3.47 H (0-0.5) mg/dl Diagnostic Findings CT OF THE NECK WITH IV CONTRAST CLINICAL HISTORY: Postoperative swelling. Difficulty swallowing. COMPARISON STUDY: MRI of the cervical spine March 25, 2018. Fluoroscopic images of the cervical spine February 26, 2024. TECHNIQUE: Following IV administration of Optiray, helical axial images of the neck were obtained. Sagittal and coronal reconstructions were viewed. Automated exposure control was utilized for the study. A dose lowering technique was utilized adhering to the principles of ALARA. FINDINGS: Visualized portions of the intracranial contents are unremarkable. Parotid and submandibular glands are normal. Epiglottis is normal. There are no cervical spine fractures. No well-defined fluid collections are present. There are postoperative findings consistent with C4-C5 and C5-C6 anterior discectomies. Hardware is intact. There are no unexpected radiopaque foreign bodies. There is moderate prevertebral and left neck stranding and fluid. There is a small amount of gas. Associated skin thickening of the left neck is present. This edema results in moderate narrowing of the supraglottic airway. There is also mass effect upon the hypopharynx. Visualized portions of the lung apices are unremarkable. Major vasculature of the neck is patent. IMPRESSION: 1. Status post C4-C5 and C5-C6 anterior discectomies. Hardware intact. No fractures. No unexpected radiopaque foreign bodies. 2. Moderate associated prevertebral and left neck stranding and fluid with a small amount of soft tissue gas. This gas is likely postsurgical. Edema and stranding is nonspecific in the early postoperative setting and may be postsurgical. An infectious process could appear similar by imaging. No h ematoma. No well-defined fluid collection. Edema results in mass effect upon the supraglottic airway and hypopharynx with moderate narrowing. Close clinical follow-up is recommended. XR chest 1V portable CLINICAL HISTORY: Chest pain, nonspecific COMPARISON STUDY: Chest radiograph 08/02/2023. FINDINGS: Lung volumes are normal. Lungs are clear. There is no pneumothorax or pleural effusion. Cardiac size is normal. Mediastinal contours are stable. There is no evidence for pulmonary edema. IMPRESSION: No acute cardiopulmonary findings. Medications Administered ER Medications Given: Dexamethasone 10mg IV NSS 500ml bolus ECG Rate (beats per minute): 86 Rhythm: sinus with SA Findings: no acute ischemic change Comparison ECG Date: from (January 07, 2015) Change: the following changes noted (Minimal criteria for anterior infarct now present) PG Care Time/CCT Total # of Minutes Spent Total Time Spent with Patient: Total time spent is greater than 50% in coordination of care (as documented) at patient's floor/unit and/or counseling patient: Coding Level of Care Code 26654 IN/OBS CONSULT LVL 4,60M Diagnoses Post-operative pain G89.18 Breathing difficulty R06.89 HTN (hypertension) I10 Obstructive sleep apnea G47.33 GERD (gastroesophageal reflux disease) K21.9 Hypothyroidism E03.9
--- NOTE | 2024-03-01 18:09 | Orthopedic Consultation ---
Date of Consultation March 01, 2024 Assessment & Plan (1) Breathing difficulty: (2) Post-operative pain: (3) Cervical disc disorder at C5-C6 level with radiculopathy: (4) Cervical disc disorder at C4-C5 level with radiculopathy: Plan The patient called in this afternoon with new development of hoarseness, difficulty swallowing, and numbness and tingling in his left upper extremity. After receiving this call, I recommended he proceed to the emergency department for CT evaluation. Luckily, it does not appear as if he has a expanding hematoma or anything concerning for airway obstruction, however given the fact that he was so concerned this afternoon, and the fact that the CT scan does demonstrate some mild supraglottic obstruction, do believe that it is appropriate for him to be admitted for observation status. I called and discussed the patient with his surgeon, Dr. Geiger.. He was very appreciative of the call and also recommended IV steroids. Orders. The patient did receive Decadron. Dr Geiger will come evaluate the patient tomorrow. History of Present Illness Reason for Consultation: New hoarseness/swelling/numbness and tingling/difficulty swallowing following anterior cervical surgery. Requesting Physician: Dr. Valdez Attending Physician: Dr Ovalle History of Present Illness This is a pleasant 61-year-old gentleman who presents to the emergency department postop day 2 status post two-level ACDF at C5-6/C6-7. The surgery was done by Dr. Aguilar. He called in this morning complaining of dysphagia, swelling in his neck, new numbness and tingling in his left hand and difficulty swallowing. He was advised to present to the emergency department. Upon presentation the emergency department, he had blood work done which was not concerning for infection. Allergies Allergy/AdvReac Type Severity Reaction Status Date / Time No Known Allergies Allergy Unknown Verified 02/26/24 06:03 Home Medications Medication Instructions Recorded Confirmed Type multivitamin 1 tab PO QAM 05/17/18 03/01/24 History omega-3 fatty acids 1,000 mg 1,000 mg PO QAM 12/28/22 03/01/24 History capsule losartan 50 mg tablet 50 mg PO QAM #90 tabs 09/18/23 03/01/24 Rx pantoprazole 40 mg tablet,delayed 40 mg PO QAM #90 tabs 11/05/23 03/01/24 Rx release (Protonix) levothyroxine 50 mcg tablet 50 mcg PO QAM #90 tabs 12/18/23 03/01/24 Rx levothyroxine 175 mcg tablet 175 mcg PO QAM #90 tabs 12/31/23 03/01/24 Rx acetaminophen 500 mg tablet 1,000 mg PO TID PRN pain 01/29/24 03/01/24 History (Tylenol Extra Strength) Patient History Medical History HTN (hypertension) controlled Hypothyroidism Obesity Hyperlipidemia Per records Elevated PSA Osteoarthritis GERD (gastroesophageal reflux disease) BPH (benign prostatic hyperplasia) no current issues Cervical spinal stenosis Lumbar spinal stenosis History of kidney stones Renal cyst bilateral - monitoring Obstructive sleep apnea Unable to Tolerate CPAP Surgical History History of total right knee replacement Right TKA (12/04/23): SAB at L3-4 + regional at [facility] S/P epidural steroid injection H/O removal of cyst forehead (local anesthesia) Hx of esophagogastroduodenoscopy [facility] (09/20/23) Hx of cystoscopy H/O colonoscopy 01/2017 Repeat 10 yrs S/P T&A (status post tonsillectomy and adenoidectomy) Hx of lithotripsy 2014 S/P right knee arthroscopy S/p bilateral carpal tunnel release S/P arthroscopy of shoulder left rotator cuff repair History of umbilical hernia repair History of appendectomy History of cholecystectomy Family History Mother Cancer of kidney, Onset Age: 92 Father Diabetes . age 57 Coronary heart disease age 57 Myocardial infarction Uncle Lung cancer Other No family history of adverse response to anesthesia Denies family history of Ovarian cancer Prostate cancer Breast cancer Colorectal cancer Stroke Social History Smoking Status: Never smoker Second Hand Exposure: No; Do You Dip or Chew Tobacco: No; Hx Alcohol Use: No Hx Substance Use: No Preferred Language: Citizen Of [place] Communication Ability: Effective Visual Impairment: No Limitations Hearing Ability: Normal Excellence Leader Required: No Beliefs That Will Affect Care: None marital status: Current Living Situation: Spouse current occupational status: retired How many Children do You have: 2 Feels Safe at Home: Yes Childhood Exposure to Second-Hand Smoke: No Diet: regular caffeine: Yes (coffee daily ) Dental Care, Regularly: Yes Physical Activity Frequency: Daily Seatbelt Use: always Sunscreen Use: Yes (sometimes) Assistive Devices: None Review of Systems Review of Systems: Negative unless otherwise noted above. Physical Exam Physical Exam: Neck/upper extremity exam: He the patient has a small subcutaneous hematoma underneath that his incision which is mildly tender to palpation. This is not concerning for airway obstruction. His voice does not appear hoarse to me. Patient notes hyperalgesia in C5 distribution on the left side and mildly diminished sensation in C8 distribution on the left side. AIN, PIN, radial, median, ulnar motor intact and equal bilaterally. Bilateral upper extremities warm and well-perfused Results & Data Vital Signs (Past 12 Hours) Vital Signs Temp Pulse Pulse Resp BP BP Pulse Ox 03/01/24 18:05 92 H 03/01/24 17:48 87 20 93 03/01/24 17:20 92 H 24 94 03/01/24 17:05 85 24 141/93 H 96 03/01/24 16:57 83 20 141/93 H 94 03/01/24 16:53 82 23 95 03/01/24 16:50 89 16 92 03/01/24 16:41 84 20 95 03/01/24 16:35 81 96 03/01/24 16:23 86 22 96 03/01/24 16:11 86 22 96 03/01/24 15:41 86 21 118/75 97 03/01/24 15:00 78 16 98 03/01/24 14:42 81 20 99 03/01/24 14:30 134/96 03/01/24 14:28 134/96 03/01/24 14:09 79 95 03/01/24 14:03 81 17 96 03/01/24 13:51 80 18 97 03/01/24 13:42 84 18 94 03/01/24 13:27 87 03/01/24 13:24 82 23 94 03/01/24 13:18 82 20 94 03/01/24 13:10 84 20 94 03/01/24 13:10 84 20 107/77 94 03/01/24 12:28 36.6 C 92 H 20 129/85 94 O2 Del Method 03/01/24 18:05 03/01/24 17:48 03/01/24 17:20 03/01/24 17:05 03/01/24 16:57 Room Air 03/01/24 16:53 03/01/24 16:50 03/01/24 16:41 03/01/24 16:35 03/01/24 16:23 03/01/24 16:11 03/01/24 15:41 03/01/24 15:00 03/01/24 14:42 03/01/24 14:30 03/01/24 14:28 03/01/24 14:09 03/01/24 14:03 03/01/24 13:51 03/01/24 13:42 03/01/24 13:27 03/01/24 13:24 03/01/24 13:18 03/01/24 13:10 Room Air 03/01/24 13:10 Room Air 03/01/24 12:28 Room Air Diagnostic Findings CT neck was personally interpreted and reviewed. This demonstrates small amount of soft tissue gas which is expected in the postoperative setting. There is edema that is nonspecific, however there is no well-defined fluid collection. The edema is resulting in some mass effect, however the airway appears patent Official Read: IMPRESSION: 1. Status post C4-C5 and C5-C6 anterior discectomies. Hardware intact. No fractures. No unexpected radiopaque foreign bodies. 2. Moderate associated prevertebral and left neck stranding and fluid with a small amount of soft tissue gas. This gas is likely postsurgical. Edema and stranding is nonspecific in the early postoperative setting and may be postsurgical. An infectious process could appear similar by imaging. No hematoma. No well-defined fluid collection. Edema results in mass effect upon the supraglottic airway and hypopharynx with moderate narrowing. Close clinical follow-up is recommended.
[2024-03-01] MEDS: dexAMETHasone**PF** 10 MG/ML VIAL IV ONE (18:23)
[2024-03-01] MEDS ORDERED: ONDANSETRON INJ 2 MG/ML 2 ML VIAL IV PRN (20:22)
[2024-03-01] MEDS: SODIUM CHLORIDE 0.9% 1,000 ML IV SCH (21:07)
[2024-03-01 21:32] LABS: C Reactive Protein 3.47 mg/dl (0-0.5)
[2024-03-01] MEDS ORDERED: ACETAMINOPHEN 500 MG TAB PO PRN (21:41)
[2024-03-01] MEDS: oxyCODONE/ACETAMINOPHEN 5mg/325mg TAB PO PRN (21:49)
[2024-03-02] MEDS: LEVOTHYROXINE SODIUM 50 MCG TABLET PO SCH (05:28)
[2024-03-02] MEDS: LEVOTHYROXINE SODIUM 175 MCG TABLET PO SCH (05:28)
[2024-03-02] MEDS: LOSARTAN POTASSIUM 50 MG TAB PO SCH (08:10)
[2024-03-02] MEDS: MULTIVITAMIN TAB PO SCH (08:10)
[2024-03-02] MEDS: PANTOprazole 40 MG TAB PO SCH (08:10)
--- NOTE | 2024-03-02 08:48 | Hospitalist Progress Note ---
Date of Service March 02, 2024 Assessment & Plan (1) Post-operative pain: Plan: Pain and swelling post operatively. No acute infection suspected on clinical exam or history. Given 10mg IV Decadron in ER, reports significant improvement in swelling/edema but still present primarily on the LEFT but tolerating full liquid diet Discussed with Dr. Geiger this morning given improvement, will REPEAT DECADRON 6mg IV x 1, monitoring response and consideration for steroid taper. Advance diet as tolerated Further management by orthopedics, Dr Geiger to see this afternoon/evening. (2) Breathing difficulty: Plan: No stridor on exam just having more difficulty from the swelling No chest pain, tachycardia or hypoxia to suggest pulmonary emboli CXR unremarkable and WBC downtrending from operation, afebrile Improvement since Decadron in ER, repeat dose as above Incentive spirometry (3) HTN (hypertension): Plan: Continue losartan, BP stable (4) Obstructive sleep apnea: Plan: Intolerant to CPAP but noted in history (5) GERD (gastroesophageal reflux disease): Plan: No acute problem Continue pantoprazole, monitor to increase if needed on steroids (6) Hypothyroidism: Plan: TSH WNl in January Continue levothyroxine Plan VTE Prophylaxis - per primary orthopedic team, karol hose in place Diet - full liquids, advance as tolerated Dispo: repeat decadron 6mg IV for today, monitoring response/consideration for steroid taper at dc. Possible dc this evening vs monitoring overnight to ensure no bounce back/issues overnight Admission and Anticipated Discharge Date Admission Date: March 01, 2024 Supervising Physician Co-Signing Physician Notes The patient was not seen by me. The chart was reviewed. Case discussed with BOWEN Fofana. Agree with assessment and plan Subjective Evaluated this morning, in room. Reports best hes felt since surgery. Still has some swelling to the left side of his neck but tolerating diet with full liquids. Not yet seen by Dr Geiger but consideration for continued steroids/taper and will message. No fevers at home but does report some hotness on the right arm when left feeling cold. Pulses present and suspect some issues with nerves related to swelling and good strength on exam at present. No fever/chills, chest pain, no nausea/vomiting. 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 FINDINGS: Lung volumes are normal. Lungs are clear. There is no pneumothorax or pleural effusion. Cardiac size is normal. Mediastinal contours are stable. There is no evidence for pulmonary edema. IMPRESSION: No acute cardiopulmonary findings. ACT 112: Negative or not required by law. Electronically signed by: Alex Dan M.D. 03/01/2024 1:44 PM Soft Tissue Neck CT 03/01/24 12:44 CT OF THE NECK WITH IV CONTRAST CLINICAL HISTORY: Postoperative swelling. Difficulty swallowing. COMPARISON STUDY: MRI of the cervical spine March 25, 2018. Fluoroscopic images of the cervical spine February 26, 2024. TECHNIQUE: Following IV administration of Optiray, helical axial images of the neck were obtained. Sagittal and coronal reconstructions were viewed. Automated exposure control was utilized for the study. A dose lowering technique was utilized adhering to the principles of ALARA. FINDINGS: Visualized portions of the intracranial contents are unremarkable. Parotid and submandibular glands are normal. Epiglottis is normal. There are no cervical spine fractures. No well-defined fluid collections are present. There are postoperative findings consistent with C4-C5 and C5-C6 anterior discectomies. Hardware is intact. There are no unexpected radiopaque foreign bodies. There is moderate prevertebral and left neck stranding and fluid. There is a small amount of gas. Associated skin thickening of the left neck is present. This edema results in moderate narrowing of the supraglottic airway. There is also mass effect upon the hypopharynx. Visualized portions of the lung apices are unremarkable. Major vasculature of the neck is patent. IMPRESSION: 1. Status post C4-C5 and C5-C6 anterior discectomies. Hardware intact. No fractures. No unexpected radiopaque foreign bodies. 2. Moderate associated prevertebral and left neck stranding and fluid with a small amount of soft tissue gas. This gas is likely postsurgical. Edema and stranding is nonspecific in the early postoperative setting and may be postsurgical. An infectious process could appear similar by imaging. No hematoma. No well-defined fluid collection. Edema results in mass effect upon the supraglottic airway and hypopharynx with moderate narrowing. Close clinical follow-up is recommended. ACT 112: Negative or not required by law. Electronically signed by: Alex Dan M.D. 03/01/2024 1:52 PM PG Care Time/CCT Total # of Minutes Spent Total Time Spent with Patient: Total time spent is greater than 50% in coordination of care (as documented) at patient's floor/unit and/or counseling patient: Coding Level of Care Code 51300 SUB INP/OBS CARE 2/35MIN Diagnoses Post-operative pain G89.18 Breathing difficulty R06.89 HTN (hypertension) I10 Obstructive sleep apnea G47.33 GERD (gastroesophageal reflux disease) K21.9 Hypothyroidism E03.9
[2024-03-02] MEDS ORDERED: DEXAMETHASONE SOD INJ 4 MG/ML VIAL IV STA (09:34)
[2024-03-02] MEDS: dexAMETHasone 6 MG in SYRINGE 0 ML IV STA (10:27)
--- NOTE | 2024-03-02 14:30 | Electrocardiogram Report ---
Test Reason : Blood Pressure : */* mmHG Vent. Rate : 86 BPM Atrial Rate : 86 BPM P-R Int : 180 ms QRS Dur : 94 ms QT Int : 344 ms P-R-T Axes : -1 6 42 degrees QTcB Int : 411 ms Normal sinus rhythm with sinus arrhythmia Cannot rule out Anterior infarct , age undetermined ; suspect misplaced lead V3 Abnormal ECG When compared with ECG of 07-Jan-2015 12:58, Minimal criteria for Anterior infarct are now Present Confirmed by Shane Rowland ([id number]) on 03/02/2024 2:29:51 PM Referred By: Jet Muhammad Confirmed By: Shane Rowland
[2024-03-02 19:48] VITALS: RESP 16
--- NOTE | 2024-03-03 07:30 | Orthopedic Progress Note ---
Date of Service March 03, 2024 Subjective Patient notes swallowing soreness resolved. DC home today. Review of Systems All systems reviewed & are unremarkable except as noted in HPI & below. Physical Exam . Results & Data Results & Data Laboratory Results . Diagnostic Findings . PG Care Time/CCT Total # of Minutes Spent Total Time Spent with Patient: Total time spent is greater than 50% in coordination of care (as documented) at patient's floor/unit and/or counseling patient: Coding Level of Care Code 65812 Post Operative Follow-Up
--- NOTE | 2024-03-03 07:34 | Discharge Summary ---
Date of Service March 03, 2024 Admission HPI (Per Admitting) Swallowing soreness after cervical disc replacement. Principal Diagnosis Same as "Discharge Diagnosis" noted below under Discharge Instructions. Discharge Exam . Discharge Data Consultations 03/01/24 14:31 Consult Orthopedic Surgery Stat 03/01/24 16:41 Consult Hospitalist Stat Ordered Studies 03/01/24 12:44 CT soft tissue neck w con Stat Hospital Course (1) Post-operative pain: (2) Cervical disc disorder at C5-C6 level with radiculopathy: (3) Cervical disc disorder at C4-C5 level with radiculopathy: PG Care Time/CCT Total # of Minutes Spent Total Time Spent with Patient: Total time spent is greater than 50% in coordination of care (as documented) at patient's floor/unit and/or counseling patient: Discharge Plan Discharge Items Patient Disposition: Home - Self-Care Reason For Visit: POST OP SWELLING S/P ACDF Discharge Diagnosis: same Activity: As commented below Lifting: No more than 10 pounds Bathing: No limitations Driving/Machine Use: Resume 1 day after discharge Non-emergency contact: Surgeon Call non-emergency contact if: your pain is worsening Follow-up/Referrals: Jet Muhammad, [Primary Care Provider] - Diet: Regular Addtl Attending Provider Instructions: Follow up in 2 weeks. Pending Studies at Discharge: No Stand-Alone Forms: [facility], Smoking Cessation Medications and DC Order Prescriptions: New cholecalciferol (vitamin D3) [Vitamin D3] 25 mcg (1,000 unit) tablet 25 mcg PO DAILY 30 Days Qty: 30 0RF Continued multivitamin tablet 1 tab PO QAM losartan 50 mg tablet 50 mg PO QAM Qty: 90 3RF pantoprazole [Protonix] 40 mg tablet,delayed release (DR/EC) 40 mg PO QAM Qty: 90 3RF levothyroxine 50 mcg tablet 50 mcg PO QAM Qty: 90 3RF Rx Instructions: for a total dose of 225mcg omega-3 fatty acids 1,000 mg capsule 1,000 mg PO QAM levothyroxine 175 mcg tablet 175 mcg PO QAM Qty: 90 3RF Rx Instructions: takes with 50mcg for a total dose of 225mcg acetaminophen [Tylenol Extra Strength] 500 mg tablet 1,000 mg PO TID PRN (Reason: pain) Rx Instructions: Take 3 times per day to lessen pain. Discharge Orders: Discharge Order (Routine); Ordered 03/03/24 Ordered By: Omid Grijalva/Other Patient Handouts: Cervical Spine Tx Admission Data Admit Date/Time: 03/01/24 20:23 Attending Provider: Omid Geiger Admit Provider: Bayron Lainez Primary Care Provider: Jet Muhammad Other Providers: Bayron Lainez; Arun Agosto Other Interventions: Discharge Summary Assessment (RN) Last Done: 03/03/24 08:48
[2024-03-03] MEDS ORDERED: DEXAMETHASONE SOD INJ 4 MG/ML VIAL IV ONE (08:00)
[2024-03-03] MEDS: dexAMETHasone 4 MG in SYRINGE 0 ML IV ONE (08:01)
[2024-03-03 08:08] VITALS: BP 123/81; PULSE 61; TEMP 98.2; O2SAT 97
[2024-03-03 08:25] LABS: BUN Creatinine Ratio 26.6 (10-20); Calcium 9.7 mg/dl (8.6-10.3); Creatinine Clr Calc Pharmacy 138.9 ml/min; Potassium 3.9 mmol/L (3.5-5.1)
--- NOTE | 2024-03-03 08:33 | Hospitalist Progress Note ---
Date of Service March 03, 2024 Assessment & Plan (1) Post-operative pain: Plan: Pain and swelling post operatively. No acute infection suspected on clinical exam or history. Given 10mg IV Decadron in ER, reports significant improvement in swelling/edema but still present primarily on the LEFT but tolerating full liquid diet Discussed with Dr. Geiger this morning given improvement, will REPEAT DECADRON 6mg IV x 1 and good response/able to advance diet as tolerated without issue and remained on room air Repeat Decadron 4mg AM 03/02 per primary and planning for dc Vit D checked/low- rx for PO replacement sent. F/u PCP (2) Breathing difficulty: Plan: No stridor on exam just having more difficulty from the swelling No chest pain, tachycardia or hypoxia to suggest pulmonary emboli CXR unremarkable and WBC downtrending from operation, afebrile and feeling MUCH better IS ordered/encouraged Decadron as above, diet advanced WITHOUT difficulty. (3) HTN (hypertension): Plan: Continued losartan, BP stable 123/81 (4) Obstructive sleep apnea: Plan: Intolerant to CPAP but noted in history (5) GERD (gastroesophageal reflux disease): Plan: No acute problem Continue pantoprazole, monitor to increase if needed on steroids but no reoprted issues (6) Hypothyroidism: Plan: TSH WNl in January Continue levothyroxine Plan Dispo: doing well, dressed and ready for discharge. Admission and Anticipated Discharge Date Admission Date: March 01, 2024 Subjective Eval this morning, sitting up in bed. Feeling much better, swelling decreased and tolerated diet advancement and even toast this morning. Vitals stable and planning for discharge/seen by primary this morning. No CP/SOB/fever, chills. Discussed vitamin D level low/rx sent but can take OTC. He does have hx kidney stones in past and encouraged to take to prevent hypercalcemia/stone formation given low. He reports his is also on supplementation. Questions/concerns addressed at this time. Physical Exam 2 Physical Exam: General: WD/WN obese male sitting up in bed, at bedside, NAD HEENT: left sided neck swelling MUCH IMPROVED/almost resolved without significant erythema, mmm, trachea midline Resp: CTA, no wheezing/rales, no crackles, on room air 97% CV: RRR, no significant m/r/g, no pitting edema/calf tenderness, karol hose in place GI: +BS, soft/slight distension but nontender, no guarding/rigidity : no bowling MSK/Neuro: not confused, moving all extremities, candy cutter hand strength intact -prior reports hyperalgesia on the right but appears stable presently Psych: AOx3, cooperative with exam Results & Data Results & Data Vital Signs (Past 12 Hours) Vital Signs Temp Pulse Resp BP Pulse Ox O2 Del Method 03/03/24 08:07 36.8 C 61 16 123/81 97 Room Air Laboratory Results 03/01/24 12:55 03/03/24 06:30 Vitamin D 24.3 PG Care Time/CCT Total # of Minutes Spent Total Time Spent with Patient: Total time spent is greater than 50% in coordination of care (as documented) at patient's floor/unit and/or counseling patient: Coding Level of Care Code 59964 SUB INP/OBS CARE 06/21MIN Diagnoses Post-operative pain G89.18 Breathing difficulty R06.89 HTN (hypertension) I10 Obstructive sleep apnea G47.33 GERD (gastroesophageal reflux disease) K21.9 Hypothyroidism E03.9
== END 2024-03-03 09:40 | disposition home or self-care (01) ==
LOC: 3W 12:15 → ED 12:15 → 3W 21:24

== ENCOUNTER 2024-07-24 08:35 | Observation (INO) ==
--- NOTE | 2024-06-30 15:48 | PAT Medication Instructions ---
Medication Instructions Date of Service June 30, 2024 Home Medications Medication Instructions Recorded losartan 50 mg tablet 50 mg PO QAM #90 tabs 09/18/23 pantoprazole 40 mg tablet,delayed 40 mg PO QAM #90 tabs 11/05/23 release (Protonix) levothyroxine 50 mcg tablet 50 mcg PO QAM #90 tabs 12/18/23 levothyroxine 175 mcg tablet 175 mcg PO QAM #90 tabs 12/31/23 multivitamin 1 tab PO QAM omega-3 fatty acids 1,000 mg capsule 1,000 mg PO QAM losartan 50 mg tablet 50 mg PO QAM pantoprazole 40 mg tablet,delayed release (Protonix) 40 mg PO QAM levothyroxine 50 mcg tablet 50 mcg PO QAM levothyroxine 175 mcg tablet 175 mcg PO QAM acetaminophen 500 mg tablet 1,000 mg PO Q6H PRN Pain cholecalciferol (vitamin D3) 50 mcg (2,000 unit) capsule (Vitamin D3) 50 mcg PO QAM STOP taking 2 weeks before surgery (or as soon as possible if surgery is within 2 weeks) omega-3 fatty acids 1,000 mg capsule 1,000 mg PO QAM DO NOT take the morning of surgery multivitamin 1 tab PO QAM losartan 50 mg tablet 50 mg PO QAM cholecalciferol (vitamin D3) 50 mcg (2,000 unit) capsule (Vitamin D3) 50 mcg PO QAM Take morning of surgery With a small sip of water, OTHERWISE NOTHING TO EAT OR DRINK AFTER MIDNIGHT: pantoprazole 40 mg tablet,delayed release (Protonix) 40 mg PO QAM levothyroxine 50 mcg tablet 50 mcg PO QAM levothyroxine 175 mcg tablet 175 mcg PO QAM acetaminophen 500 mg tablet 1,000 mg PO Q6H PRN Pain (if needed) Take evening before surgery acetaminophen 500 mg tablet 1,000 mg PO Q6H PRN Pain (if needed) Other Notes If you have any questions please call us at [phone] or [phone] or [phone] or [phone]
--- NOTE | 2024-07-04 10:25 | Anesthesiology Consultation ---
Date of Service July 04, 2024 Assessment & Plan (1) Encounter for pre-operative examination: - Infectious disease screening: Per assessment on 07/04/24- No known recent infectious disease contacts or current infectious disease symptoms. - Outpatient joint assessment: Pt currently scheduled for inpatient pathway. If surgeon requests review for outpatient joint pathway, patient is not recommended candidate for outpatient joint program from anesthesia standpoint based on available information. Chart Review Chart Review: Acceptable Risk for Surgery and Patient seen in Pre Admission Testing Teaching & Discussion Pre-Anesthesia Teaching/Discussion Notes: Instructed NPO after midnight before surgery,except medications with 15 cc of water. Medication instructions provided according to the PAT guidelines. History Surgery Operation Date: 07/24/24 12:30 Proposed Procedures p Left Total Knee Arthroplasty - Rambo Mccrary MD Height/Weight Height: 5 ft 10 in Weight: 119.2 kg Allergies Allergy/AdvReac Type Severity Reaction Status Date / Time No Known Allergies Allergy Unknown Verified 06/30/24 08:30 Medications Home Medications Medication Instructions Recorded Confirmed Last Taken multivitamin 1 tab PO QAM 05/17/18 06/30/24 03/01/24 omega-3 fatty acids 1,000 mg 1,000 mg PO QAM 12/28/22 06/30/24 03/01/24 capsule losartan 50 mg tablet 50 mg PO QAM #90 tabs 09/18/23 06/30/24 03/01/24 pantoprazole 40 mg tablet,delayed 40 mg PO QAM #90 tabs 11/05/23 06/30/24 03/01/24 release (Protonix) levothyroxine 50 mcg tablet 50 mcg PO QAM #90 tabs 12/18/23 06/30/24 03/01/24 levothyroxine 175 mcg tablet 175 mcg PO QAM #90 tabs 12/31/23 06/30/24 03/01/24 acetaminophen 500 mg tablet 1,000 mg PO Q6H PRN Pain 06/30/24 06/30/24 Unknown cholecalciferol (vitamin D3) 50 50 mcg PO QAM 06/30/24 06/30/24 Unknown mcg (2,000 unit) capsule (Vitamin D3) Past Medical History Medical History BPH (benign prostatic hyperplasia) no current issues Cervical spinal stenosis Hx cervical fusion 02/2024 Elevated PSA GERD (gastroesophageal reflux disease) History of kidney stones HTN (hypertension) controlled 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 age 57 Coronary heart disease age 57 Myocardial infarction Uncle Lung cancer Other No family history of adverse response to anesthesia Denies family history of Ovarian cancer Prostate cancer Breast cancer Colorectal cancer Stroke Past Surgical History Surgical History H/O colonoscopy 01/2017 Repeat 10 yrs H/O removal of cyst forehead (local anesthesia) History of appendectomy History of cholecystectomy History of total right knee replacement Right TKA (12/04/23): SAB at [facility] + regional at [facility] History of umbilical hernia repair Hx of cervical spine surgery C4-C6 ACDF (02/2024) Cervical fusion 02/26/24, [facility] ER 03/01/24 with complaints of postoperative pain/swelling/dyspnea > admitted, IV steroids (no issues since per patient) Hx of cystoscopy Hx of esophagogastroduodenoscopy [facility] (09/20/23) Hx of lithotripsy 2014 S/P arthroscopy of shoulder left rotator cuff repair S/p bilateral carpal tunnel release S/P epidural steroid injection S/P right knee arthroscopy S/P T&A (status post tonsillectomy and adenoidectomy) Past Anesthesia History No Hx of Anesthesia Complications and No Family Hx of Anesthesia Complications History of PONV No Hx of PONV and No Hx of Motion Sickness Social History Smoking Status: Never smoker Do You Dip or Chew Tobacco: No Hx Alcohol Use: Yes Alcohol type: beer alcohol intake frequency: holidays/special occasions only Hx Substance Use: No substance use type: does not use Review of Systems Occasional dry cough- at baseline. Patient denies chest pain, shortness of breath, dyspnea on exertion, fever, chills, wheezing. Physical Exam Vital Signs BP 119/76 P 73 TEMP 98.3 SP02 98%RA RESP 16 Physical Mildly decreased cervical extension range of motion. Full TMJ range of motion. TMD > 3.5 finger breaths Mallampati Score II Dentition: intact, + crown Lungs: clear throughout to auscultation Cardiac: regular rate and rhythm, no murmurs noted Spine: normal Carotid arteries: negative bruit Extremities: no LE edema Lab Results Anesthesia Preop Results Results Anesthesia Widget: WBC 7.20 K/ul (4.8-10.8) 07/04/24 Hgb 13.6 g/dl (14.0-18.0) L 07/04/24 Hct 40.1 % (42.0-52.0) L 07/04/24 Plt 167 K/uL (130-400) 07/04/24 Na 140 mmol/L (136-145) 07/04/24 K 4.0 mmol/L (3.5-5.1) 07/04/24 Cl 105 mmol/L (98-107) 07/04/24 CO2 28 mmol/L (21-32) 07/04/24 BUN 14 mg/dl (6-23) 07/04/24 Creat 0.69 mg/dl (0.6-1.4) 07/04/24 Glucose Level 100 mg/dl (70-99(Fasting)) H 07/04/24 PT 10.6 Seconds (9.0-12.0) 07/04/24 PTT 29 Seconds (21-31) 07/04/24 INR 1.0 (0.9-1.1) 07/04/24 Blood Type O Positive 07/04/24 Antibody Screen NEGATIVE 07/04/24 Testing Electrocardiogram Date: 03/01/24 NSR at 86bpm. Cannot r/o anterior infarct, age undetermined (suspected lead V3 misplacement per cardio). Chest X-Ray Date: 03/01/24 FINDINGS: Lung volumes are normal. Lungs are clear. There is no pneumothorax or pleural effusion. Cardiac size is normal. Mediastinal contours are stable. There is no evidence for pulmonary edema. IMPRESSION: No acute cardiopulmonary findings. Stress Test Date: 07/30/23 Type: DSE Type: DSE DSE/stress ECG for myocardial ischemia 90% MPHR. Baseline echo with normal LV function. LVEF 50-55%. Mild concentric LVH. No significant valvular disease.
[~2024-07-24 08:35] MED LIST changes: -EPINEPHrine INJ 1 MG/ML AMP ONE
--- NOTE | 2024-07-24 09:01 | History & Physical Bridge Note ---
Date of Service July 24, 2024 History & Physical Bridge Note I have examined the patient, reviewed the History & Physical and in the interval since the performance of the History & Physical I have noted the following changes of clinical significance: no changes noted
[2024-07-24] MEDS ORDERED: MIDAZOLAM HCL 1 MG/ML 2ML VIAL ONE (09:39)
[2024-07-24] MEDS ORDERED: PROPOFOL IV EMULSION 10 MG/ML 20 ML VIAL IV ONE ×2 (09:40→12:50)
[2024-07-24] MEDS ORDERED: ONDANSETRON INJ 2 MG/ML 2 ML VIAL ONE (09:40)
[2024-07-24] MEDS: LR 500ML BOLUS, THEN 15ML/HR IV SCH (09:48)
[2024-07-24] MEDS: METOCLOPRAMIDE HCL 10 MG TABLET PO SCH (09:49)
[2024-07-24] MEDS: ACETAMINOPHEN 500 MG TAB PO SCH ×2 (09:49→16:24)
[2024-07-24] MEDS: dexAMETHasone**PF** 10 MG/ML VIAL IV SCH (09:49)
[2024-07-24] MEDS: FAMOTIDINE 20 MG TAB PO SCH (09:49)
[2024-07-24] MEDS: LR 60ML/HR IV SCH (09:49)
[2024-07-24] MEDS: CeleBREX 200 MG CAP PO SCH (09:49)
[2024-07-24] MEDS ORDERED: fentaNYL citrate PF 100 MCG/2 ML VIAL IV PRN (10:41)
[2024-07-24] MEDS ORDERED: ATROPINE SULFATE 0.1 MG/ML 10ML SYR IV PRN (10:41)
[2024-07-24] MEDS ORDERED: ONDANSETRON INJ 2 MG/ML 2 ML VIAL IV PRN ×2 (10:41→14:58)
[2024-07-24] MEDS ORDERED: ePHEDrine sulfate 50 MG/ML AMP IV PRN (10:41)
[2024-07-24] MEDS: ceFAZolin 2000MG 2,000 MG/15 ML SYR IV SCH ×2 (11:20→18:24)
[2024-07-24] MEDS ORDERED: KETAMINE HCL 10MG/ML SYR ONE (11:32)
[2024-07-24] MEDS ORDERED: KETOROLAC 30 MG/ML VIAL ONE (11:34)
[2024-07-24] MEDS: ORTHO JOINT ANESTHETIC ONE (11:51)
[2024-07-24] MEDS: ROPIV 0.5% 246mg, Ketorolac 30mg, EPINEPHrine 0.5mg in NSS INFIL SCH (11:51)
[2024-07-24] MEDS ORDERED: PHENYLEPHRINE 100MCG/ML 5ML SYR ONE (12:17)
[2024-07-24] MEDS: TRANEXAMIC ACID 1,000 MG **IV Pre-op IV SCH (12:24)
--- NOTE | 2024-07-24 13:16 | Operative Report ---
PG Post Operative Report Pre & Post Diagnosis Operation Date: 07/24/24 10:40 Pre-Op Diagnosis: Left Knee Osteoarthritis Post-Op Diagnosis: Left Knee Osteoarthritis I identified the patient and participated in the time-out.: Yes Procedure Operation Date: 07/24/24 10:40 Actual Procedures p Left Total Knee Arthroplasty, Cemented(Left) - Rambo Mccrary MD Surgeon Rambo Mccrary MD Purchase Price Analyst Hussein Tomlin PA-C Estimated Blood Loss 50 Findings Consistent with Post-Op Diagnosis Specimens Left knee sent for pathology. Anesthesia Type Spinal MAC Complications none Disposition Accompanied Patient To Recovery: No Indications Patient is a 69-year-old gentleman has had a several year history of increasing bilateral knee pain discomfort described to gotten worse over time. Failed conservative measures. He had his right knee replaced 7 months ago and is done well from this. Continues to bothered by left knee pain discomfort stiffness. He elected proceed with left total knee arthroplasty. Description of Procedure Operative implants consist of: 1 Biomet Vanguard size 72.5 left posterior stabilized femoral component. 2. Biomet size 79 tibial tray. 3. 10 mm posterior stabilized polyethylene insert. 4. 34 x 8 and half all poly patella. The patient was taken the op room, identified, placed on the operating table in the supine position. All conductors were appropriately padded. IV antibiotics fibra anesthesia team. Spinal anesthetic and adductor canal block had been provided in the holding area. A left thigh turn was then placed. Left lower extremity was then prepped and draped in usual sterile fashion. The left leg was elevated and exsanguinated with use of an Esmarch and the turn was placed at 300 mmHg. An anterior approach to the left knee was then performe d to longitudinal incision centered over the patella. Sharp dissection scalp through subcutaneous tissue down the extensor mechanism. A medial parapatellar arthrotomy incision was made. Some subperiosteal dissection was carried out medially. The fat pad was resected from the patella tendon. The lateral patellofemoral ligament was released. The patella subluxated laterally and the knee was flexed. The osteophytes taken off distal femur. The ACL and PCL were then released from distal femur the tibia subluxated anteriorly. The external treatment LYMErix then placed on the anterior face of the tibia and adjusted 14 mm medially. Proximal tibial cut was made remove about 1 to 2 mm of bone from the most efficient aspect medial tibial plateau. Some osteophytes taken off medial and posterior medially. The tibia was sized to a size 79. Attention drawn the femur. The distal femur was entered with a sharp drill. Intramedullary canal was suction. A left 6 degree valgus cutting guide was placed. The distal femoral cutting block was pinned in place. Distal femoral cut was made take an additional 3 mm of bone off distal femur. The femur was then sized to a size 72.5. The AP cutting block was pinned parallel to the neural axis which was 5 degrees of external rotation. The anterior cut, anterior chamfer, posterior cut, posterior chamfer cuts were made. The box cutting guide was placed and just slight lateral and the box cut was made. The knee was flexed. The remnants of the medial and lateral menisci were excised. The osteophytes were taken off the posterior aspect the femur. A trial femoral component was placed. The tibial tray was pinned Sheila extra rotation and the drill and stem punch were used to create defect in proximal tibia for the tibial tray. The knee was then trialed and 10 mm insert fit most appropriately. Attention drawn the patella. The patella was cleaned of all soft tissue. Patella thickness measured 25 mm in thickness was cut down to 14. Was sized to a size 34 patella. The lug holes were drilled for 34 patella. The lateral osteophytes removed. Patella button was placed. Knee was taken through range of motion patella tracked nicely with no thumbs test. Attention drawn to placing permanent components. Nupathe all trial components were removed. Bone plug was placed in the distal femur limit blood loss. Double batch Palacos G cement was mixed. Biomet Vanguard size 72.5 left posterior stabilized femoral component, size 79 tibial tray, a 10 mm posterior stabilized polyethylene insert, and a 34 x 8 all poly patella then cemented in place. Final cement check was then performed. Pericapsular tissues were injected with total of 100 cc of Ortho mix. The patient did receive 1 g tranexamic acid. The tourniquet was then let down for final tourniquet time was 62 minutes. Hemostasis assured with electrocautery. Extensor Meclomen was then closed with combination 1 PDS suture and 1 Vicryl suture in a [id number] fashion. The extensor mechanism was checked and found to be intact with subcutaneous tissue then closed with 2 Dexon suture in a buried interrupted fashion skin was closed skin mane. Leg was then cleaned and dried and sterile dressed with Xeroform, 4 fours, sterile cast padding, Mario bandage were applied. Patient transferred to the recovery room in stable condition. Patient tolerated the procedure well and there were no complications. Hussein Tomlin, my physician vector control assistant, was present for the entire procedure. His assistance was essential and required for appropriate patient positioning, prepping and draping, surgical exposure, performing the technical details of the operation, placement the implants, closure of the wound, and placement of the sterile bandage. I attest to the content of the Intraoperative Record and any orders documented therein. Any exceptions are noted below.
--- NOTE | 2024-07-24 13:27 | XRay Report ---
XR knee LT 1 or 2V routine CLINICAL HISTORY: Surgical Post Op COMPARISON: 04/05/2018 FINDINGS: Left knee prosthesis shows no hardware complication. There is expected soft tissue gas. Sk in mane are present. IMPRESSION: Unremarkable postoperative exam. ACT 112: Negative or not required by law. Electronically signed by: Lionel Yao M.D. 07/24/2024 1:26 PM
--- NOTE | 2024-07-24 14:14 | Anesthesiology Progress Note ---
Date of Service July 24, 2024 Anesthesia Post Procedure Vital Signs Vital Signs: Temp Pulse Resp BP Pulse Ox O2 Del Method O2 Flow Rate 07/24/24 14:00 71 17 105/61 93 Nasal Cannula 2 07/24/24 13:50 70 14 107/63 95 Nasal Cannula 2 07/24/24 13:40 98.8 F 78 14 113/66 94 Nasal Cannula 2 07/24/24 13:30 72 20 105/66 93 Nasal Cannula 2 07/24/24 13:20 86 20 104/67 95 Oxymask 6 07/24/24 13:12 97.9 F 99 H 18 104/68 93 Oxymask 6 07/24/24 09:28 98.8 F 81 20 149/85 H 96 Room Air Pain Intensity Left Knee: Pain Intensity: 4 Transfer of Care Handoff Completed per policy Notes Mental Status: alert / awake / arousable and participated in evaluation Patient Amnestic to Procedure: Yes Nausea / Vomiting: adequately controlled Pain: adequately controlled Airway Patency, RR, SpO2: stable & adequate BP & HR: stable & adequate Hydration State: stable & adequate Neuraxial Anesthesia: was administered and sensory block is resolving Anesthetic Complications: no major complications apparent and Pt Satisfied with anesthetic care
[2024-07-24] MEDS ORDERED: MAGNESIUM HYDROXIDE SUSP 30 ML UDC PO PRN (14:58)
[2024-07-24] MEDS ORDERED: NALOXONE HCL 0.4 MG/1 ML VIAL/CARP IV PRN (14:58)
[2024-07-24] MEDS ORDERED: METOCLOPRAMIDE HCL INJ 5 MG/ML 2 ML VIAL IV PRN (14:58)
[2024-07-24] MEDS ORDERED: HYDROmorphone INJ 0.5 MG/0.5 ML SYR IV PRN (14:58)
[2024-07-24] MEDS ORDERED: ALUMINUM/MAGNESIUM SUSP 30 ML UDC PO PRN (14:58)
[2024-07-24] MEDS ORDERED: bisacodyL 10 MG SUPP PR PRN (14:58)
[2024-07-24] MEDS ORDERED: KETOROLAC TROMETHAMINE 15 MG/ML VIAL IV SCH (15:15)
[2024-07-24] MEDS: ASCORBIC ACID 500 MG TAB PO SCH (16:24)
[2024-07-24] MEDS: KETOROLAC TROMETHAMINE 15 MG/ML VIAL IV SCH (17:17)
[2024-07-24] MEDS: TRANEXAMIC ACID / 0.7% NACL 1,000 MG/100 ML BAG IV ONE (18:24)
[2024-07-24] MEDS: ASPIRIN 81 MG ECTAB PO SCH (20:25)
[2024-07-24] MEDS: DOCUSATE SODIUM 100 MG CAP PO SCH (20:26)
[2024-07-24] MEDS: TAMSULOSIN HCL 0.4 MG CAP PO SCH (20:26)
[2024-07-24] MEDS: SENNA 8.6 MG TAB PO SCH (20:26)
[2024-07-24] MEDS ORDERED: SENNA 8.6 MG TAB PO SCH (21:00)
[2024-07-25] MEDS: LEVOTHYROXINE SODIUM 175 MCG TABLET PO SCH (05:26)
[2024-07-25] MEDS: LEVOTHYROXINE SODIUM 50 MCG TABLET PO SCH (05:26)
--- NOTE | 2024-07-25 07:37 | Orthopedic Progress Note ---
Date of Service July 25, 2024 Assessment & Plan (1) Status post left knee replacement: Plan: 69-year-old gentleman postop day 1 from left knee replacement doing pretty well. Pains been reasonably well-controlled. No chest pain or shortness of breath. He is neurologically intact. Plan: 1. DVT prophylaxis including thigh-high teds, SCDs, aspirin twice a day. 2. PT/OT. Weight-bear as tolerated. Left total knee protocol. 3. Pain control. Doing well with current pain regimen. 4. Disposition. Plan to discharge to home with some home health after therapy today. Admission and Anticipated Discharge Date Admission Date: July 24, 2024 Subjective 69-year-old gentleman postop day 1 from a left knee replacement. He is doing pretty well. He recently just got done doing his exercises and having a little bit more pain. No chest pain or shortness of breath. Not feeling dizzy or lightheaded. Physical Exam Physical Exam: Physical examination was a pleasant middle-age male. He is lying in bed looks pretty comfortable this morning. Examination of the left leg reveals the leg to be well aligned. Dressings clean dry and intact. Dorsiflex and plantarflex his foot appropriately. He can do a straight leg raise. Respiratory: normal respiratory effort, lungs clear to auscultation Cardiovascular: RRR, no murmur, no edema Gastrointestinal (Abdomen): normal bowel sounds, soft, nontender, no hepatosplenomegaly Results & Data Vital Signs (Past 12 Hours) Vital Signs Temp Pulse Resp BP Pulse Ox O2 Del Method 07/25/24 07:32 36.6 C 61 18 101/61 97 Room Air 07/25/24 02:45 36.8 C 74 126/74 93 Room Air 07/24/24 23:06 36.6 C 66 112/69 92 Room Air 07/24/24 20:07 36.5 C 63 16 107/64 93 Room Air Laboratory Results Labs are pending.
[2024-07-25 07:54] LABS: Hematocrit (blood only) 33.4 % (42.0-52.0); Hemoglobin 11.6 g/dl (14.0-18.0); Mean Corpuscular Hemoglobin 28.9 pg (25.0-34.0); Mean Corpuscular Hgb Conc 34.7 g/dL (32.0-36.0); Mean Corpuscular Volume 83.1 fL (80.0-100.0); Mean Platelet Volume 9.2 fL (9.4-12.4); Platelet Count 153 K/uL (130-400); RDW Coefficient of Variation 13.2 % (11.5-14.5); RDW Standard Deviation 39.8 fL (36.4-46.3); Red Blood Count 4.02 M/uL (4.70-6.10); White Blood Count 13.73 K/ul (4.8-10.8)
[2024-07-25 08:18] LABS: BUN Creatinine Ratio 25.4 (10-20); Calcium 8.5 mg/dl (8.6-10.3); Creatinine Clr Calc Pharmacy 127.2 ml/min; Potassium 3.8 mmol/L (3.5-5.1)
[2024-07-25] MEDS: oxyCODONE HCL IR 5 MG TAB (IMMEDIATE RELEASE) PO PRN (08:35)
[2024-07-25] MEDS: dexAMETHasone 10 MG in SYRINGE 0 ML IV SCH (08:35)
[2024-07-25] MEDS: MULTIVITAMIN TAB PO SCH (08:35)
[2024-07-25] MEDS: OMEGA-3 (PURIFIED FISH OIL) 1 GM CAP PO SCH (08:35)
[2024-07-25] MEDS: CHOLECALCIFEROL 25 MCG (1000 UNITS) TAB PO SCH (08:35)
[2024-07-25] MEDS: LOSARTAN POTASSIUM 50 MG TAB PO SCH (08:36)
[2024-07-25] MEDS: PANTOprazole 40 MG TAB PO SCH (08:36)
[2024-07-25] MEDS ORDERED: MULTIVITAMIN TAB PO SCH (09:00)
[2024-07-25] MEDS ORDERED: TAMSULOSIN HCL 0.4 MG CAP PO SCH (09:00)
[2024-07-25 14:53] VITALS: BP 111/61; PULSE 65; RESP 15; TEMP 97.9; O2SAT 94
--- NOTE | 2024-07-29 06:35 | Discharge Summary ---
Date of Service July 29, 2024 Principal Diagnosis Same as "Discharge Diagnosis" noted below under Discharge Instructions. Discharge Data Procedures Performed Operation Date: 07/24/24 10:40 Actual Procedures p Left Total Knee Arthroplasty, Cemented(Left) - Rambo Mccrary MD Ordered Studies 07/24/24 05:00 US - OR guided needle placemen Routine Hospital Course (1) Status post left knee replacement: This is a 69 year old patient admitted on 07/24/24 and underwent total knee arthroplasty. He tolerated the procedure well and there were no complications. Transferred to the PACU post op and later to the orthopedic floor for further care. He was given ancef for antibiotic prophylaxis. He was also given SATISH stockings, SCDs, and aspirin for DVT prophylaxis. Hemoglobin, hematocrit, and vital signs were monitored during his hospital stay and remained stable. Did not require any blood transfusions. There were no complications during his hospital stay. By post op day #1 the patient was tolerating a regular diet, pain was reasonably controlled with oral pain medicine, and he was participating in physical therapy. On post op day #1 the patient was discharged home and set up with home health care. He was given printed discharge instructions including prescriptions for extra strength tylenol, aspirin, zofran, oxycodone, senokot, and flomax. Continue physical therapy, weight bearing as tolerated. Continue SATISH stockings. Follow up approximately 2 weeks post op or sooner if there are problems or concerns. Discharge Plan Discharge Items Patient Disposition: Home - Home Health Services Reason For Visit: Left Knee Osteoarthritis Discharge Diagnosis: Left Knee Replacement Activity: Per Instructions section Weightbearing: Full weightbearing Non-emergency contact: Surgeon Call non-emergency contact if: you have any medication questions Follow-up/Referrals: Jet Muhammad DO [Primary Care Provider] - Diet: Regular Addtl Attending Provider Instructions: ACTIVITY RECOMMENDATIONS: Diet: * You may resume previous diet. Physical Therapy: * You will go to physical therapy three times each week for four to six weeks after your surgery in order to regain your knee range of motion and to retrain your knee to work properly. * It is just as important to make sure you are getting your knee perfectly straight as it is to regain your knee bend. * Taking a pain pill an hour before therapy can help you have a more productive and comfortable therapy session. Home Exercise: * You were shown a series of exercises (heel props, heel slides, etc.) in the hospital. Do these exercises three to four times each day including the exercises you were shown in physical therapy. Walking: * Get up and walk several times each day. For the first four weeks, try not to stand or walk for more than one hour at a time. If you do stand or walk for more than one hour, you will not hurt anything, but your knee and leg will likely swell. * As you feel comfortable, you may change from the walker or crutches to a cane and then to independent walking. MEDICATIONS: New Medicine: * You will likely be taking one or more of these medications: 1. Oxycodone - A quick and shorter-acting pain medication. Take one to two tablets every six hours to lessen your pain. 2. Aspirin - Thins your blood to lessen the chance of forming a blood clot. * The most common side effects of pain medicine and iron are nausea and constipation. If nausea or constipation is too much of a problem or if you have any questions about your new medicines or doses, call [facility] at . We will try to help you manage these issues. "VERY IMPORTANT TO READ AND REVIEW" Pain: * The immediate post-operative period after knee replacement surgery is often quite painful. * You are given a prescription for pain medicine. You should take it, as directed, when you need it, especially before physical therapy and before going to bed. Pain that interferes with sleep is very common and can last several months. * You will likely need pain medicine for the first four to six weeks. It will not stop all of the pain. The pain will lessen and as you feel better, you may change to milder pain medicine such as Tylenol. * The most common side effects of pain medicine are nausea and constipation, so don't take more than you need. SPECIAL CARE INSTRUCTIONS: TEDs/Elastic Stockings: * The white elastic stockings help limit swelling and prevent blood clots from forming in your legs. The more you wear them, the more they work. * Wear them for six weeks after knee replacement surgery and four weeks after partial knee replacement. Incision Site Care: * Remove dressing postoperative day 2 and then shower. Keep direct shower pressure off the incision site. * After showering, cover sherly with dry gauze and change daily or more frequently if the dressing is getting saturated with drainage. * Use the SATISH stockings to hold dressing in place. DO NOT apply tape on the skin. * May completely stop using bandage if wound is dry and no drainage * Sherly are removed between 2 and 3 weeks post-op. If your follow-up appointment is made before 2 weeks, please have your appointment re- scheduled. It is too early to remove the sherly. Prevention of Infection: * Take antibiotics one hour before any dental cleaning, dental work, urological procedure, gastrointestinal procedure or any invasive surgery in order to prevent your new joint from getting infected. * You may get the antibiotics from the doctor performing the procedure or you may call our office at [phone] before and we will call in a prescription to the pharmacy of your choice. Things to Watch For: * Drainage from the incision site that occurs more than one week after your surgery. * Severely increased knee/leg pain or swelling. * Increased redness at the incision site. * Fever above 102 degrees Fahrenheit. * Unusual chest pain or shortness of breath. * Unusual pain or burning with urination. Call [facility] at [phone] with any of the above problems or if you have any questions about your medicines or recovery. FOLLOW UP VISIT: Make an appointment to see your doctor for approximately two weeks after surgery for a progress check and staple removal by calling the office at [phone]. Pending Studies at Discharge: No Stand-Alone Forms: My [facility], Smoking Cessation Medications and DC Order Prescriptions: Continued multivitamin tablet 1 tab PO QAM losartan 50 mg tablet 50 mg PO QAM Qty: 90 3RF pantoprazole [Protonix] 40 mg tablet,delayed release (DR/EC) 40 mg PO QAM Qty: 90 3RF levothyroxine 50 mcg tablet 50 mcg PO QAM Qty: 90 3RF Rx Instructions: for a total dose of 225mcg oxycodone 5 mg tablet 5 - 10 mg PO Q8H PRN (Reason: pain) Qty: 40 0RF Rx Instructions: Take as needed for pain. Do not take more than 6 tablets per day. ondansetron 4 mg tablet,disintegrating 4 mg PO Q8 PRN (Reason: nausea) Qty: 20 1RF Rx Instructions: Take as needed for nausea sennosides [Senokot] 8.6 mg tablet 8.6 mg PO BID 14 Days Qty: 28 0RF Rx Instructions: Take two times a day to prevent/treat constipation acetaminophen [Tylenol Extra Strength] 500 mg tablet 1,000 mg PO TID 30 Days Qty: 180 0RF Rx Instructions: Take 3 times per day to lessen pain. aspirin [Aleshia Low Dose Aspirin] 81 mg tablet,delayed release (DR/EC) 81 mg PO BID 45 Days Qty: 90 0RF Rx Instructions: Take to prevent blood clots. tamsulosin [Flomax] 0.4 mg capsule 0.4 mg PO DAILY Qty: 7 0RF Rx Instructions: Begin night BEFORE surgery to prevent urinary retention omega-3 fatty acids 1,000 mg capsule 1,000 mg PO QAM levothyroxine 175 mcg tablet 175 mcg PO QAM Qty: 90 3RF Rx Instructions: takes with 50mcg for a total dose of 225mcg cholecalciferol (vitamin D3) [Vitamin D3] 50 mcg (2,000 unit) Capsule 50 mcg PO QAM Discontinued acetaminophen 500 mg Tablet 1,000 mg PO Q6H PRN (Reason: Pain) Admission Data Admit Date/Time: 07/24/24 13:09 Attending Provider: Rambo Mccrary Admit Provider: Rambo Mccrary Primary Care Provider: Jet Muhammad Other Providers: [facility],Home Health Other Interventions: Discharge Summary Assessment (RN) Last Done: 07/25/24 09:27
== END 2024-07-25 15:25 | disposition home health service (06) ==
LOC: 3W 08:35 → ASU 08:35
DX: N40.0 Benign prostatic hyperplasia without lower urinary tract symptoms; Z79.890 Hormone replacement therapy; K21.9 Gastro-esophageal reflux disease without esophagitis; I10 Essential (primary) hypertension; M17.12 Unilateral primary osteoarthritis, left knee; G47.33 Obstructive sleep apnea (adult) (pediatric); M25.762 Osteophyte, left knee; Z96.651 Presence of right artificial knee joint; Z79.899 Other long term (current) drug therapy; Z98.1 Arthrodesis status; Z79.82 Long term (current) use of aspirin